=== PATIENT | male | born 1965 | race African-American/Black ===

== ENCOUNTER 2017-12-07 19:52 | Emergency (ER) | payer OTHER ==
[2017-12-07 19:58] VITALS: BP 141/86; PULSE 96; TEMP 98.8; BMI 42.2
[2017-12-07] MEDS ORDERED: KETOROLAC TROMETHAMINE 30 MG/1 ML VIAL IM ONE (20:37)
--- NOTE | 2017-12-07 20:37 | PDOC ---
History of Present Illness - General Chief Complaint: Pain, Acute Stated Complaint: KNEE PAIN Time Seen by Provider: 12/07/17 20:16 History Source: Patient Exam Limitations: No Limitations - History of Present Illness Initial Comments: 12/07/17 21:03 This is a 52-year-old male without significant past medical history of presents emergency Department with left knee pain which is worsened over the past 2 weeks. Patient states when he has prolonged periods of inactivity the pain gets worse but if she moves the pain gets relieved to the point where the pain is completely gone. He denies trauma, fevers, chills, swelling to the area. Past History - Past Medical History Allergies/Adverse Reactions: Allergies Allergy/AdvReac Type Severity Reaction Status Date / Time No Known Allergies Allergy Verified 07/17/16 06:47 Home Medications: Ambulatory Orders Amlodipine Besylate [Norvasc -] 10 mg PO DAILY 12/07/17 Atorvastatin Ca [Lipitor] 40 mg PO HS 12/07/17 Anemia: No Asthma: No Cancer: No Cardiac Disorders: No CVA: No COPD: No CHF: No Dementia: No Diabetes: Yes (pre-diabetic) GI Disorders: No Disorders: No HTN: Yes Hypercholesterolemia: Yes Liver Disease: No Seizures: No Thyroid Disease: No - Immunization History Immunization Up to Date: Yes - Suicide/Smoking/Psychosocial Hx Smoking History: Current some day smoker Cigars Per Day: 1 Information on smoking cessation initiated: No Hx Alcohol Use: No Drug/Substance Use Hx: No Substance Use Type: None Review of Systems - Review of Systems Able to Perform ROS?: Yes Is the patient limited Nauruan proficient: No Constitutional: No: Symptoms Reported HEENTM: No: Symptoms Reported Respiratory: No: Symptoms reported Cardiac (ROS): No: Symptoms Reported ABD/GI: No: Symptoms Reported : No: Symptoms Reported Musculoskeletal: Yes: See HPI Integumentary: No: Symptoms Reported Neurological: No: Symptoms reported *Physical Exam - Vital Signs Last Vital Signs Temp Pulse Resp BP Pulse Ox 98.8 F 96 H 20 141/86 95 12/07/17 19:56 12/07/17 19:56 12/07/17 19:56 12/07/17 19:56 12/07/17 19:56 - Physical Exam General Appearance: Yes: Appropriately Dressed. No: Apparent Distress Neck: positive: Trachea midline, Supple Respiratory/Chest: positive: Lungs Clear, Normal Breath Sounds. negative: Respiratory Distress, Accessory Muscle Use Cardiovascular: positive: Regular Rhythm, Regular Rate. negative: Murmur Gastrointestinal/Abdominal: positive: Normal Bowel Sounds, Soft. negative: Tender Musculoskeletal: positive: Normal Inspection. negative: CVA Tenderness, Decreased Range of Motion Extremity: positive: Normal Capillary Refill, Normal Inspection Integumentary: positive: Normal Color, Dry, Warm Neurologic: positive: Alert, Normal Response Medical Decision Making - Medical Decision Making 12/07/17 21:03 A/P: 52-year-old male without significant past medical history with atraumatic left knee pain for 2 weeks which worsens with inactivity and is improved with mobility No swelling noted to knee For range of motion noted when compared to right leg Negative Becca test Toradol, x-rays, reassess 12/07/17 22:04 Wet read of x-ray: No fracture dislocation is present. I will discharge the patient home. I discussed the physical exam findings, ancillary test results and final diagnoses with the patient. I answered all of the patient's questions. The patient was satisfied with the care received and felt comfortable with the discharge plan and treatment plan. The patient will call his doctor within 96 hours to arrange follow-up and will return to the Emergency Department with any new, persistent or worsening symptoms. *DC/Admit/Observation/Transfer Diagnosis at time of Disposition: Arthritis - Discharge Dispostion Disposition: HOME Condition at time of disposition: Fair Decision to Admit order: No - Referrals - Patient Instructions Printed Discharge Instructions: DI for Arthritis Additional Instructions: Take Tylenol or Motrin as needed for pain. Follow manufacturers instructions for appropriate dosage. Return to emergency department for discoloration of the foot, numbness or tingling to the foot, worsening pain, or any other concerns. Thank you very much for choosing us to provide your emergent healthcare needs. - Post Discharge Activity Forms/Work/School Notes: Back to Work
[2017-12-07] MEDS ORDERED: KETOROLAC TROMETHAMINE 30 MG/1 ML VIAL ONE (20:48)
== END 2017-12-07 22:13 | disposition home or self-care (01) ==
LOC: JERFT 19:52
PROC: 3E0233Z Introduction of Anti-inflammatory into Muscle, Percutaneous Approach (ICD-10-PCS; principal; 2017-12-07)
DX: M13.862 Other specified arthritis, left knee (principal); I10 Essential (primary) hypertension; E78.00 Pure hypercholesterolemia, unspecified; R73.03 Prediabetes
CPT/HCPCS: 73562-TC-LT-FY; 99281-25

== ENCOUNTER 2019-02-09 08:00 | Observation (INO) | payer OTHER ==
[2019-02-01 14:19] VITALS: BMI 44.9
[2019-02-22] MEDS ORDERED: MIDAZOLAM HCL 2 MG/2 ML SINGLE DOSE VIAL ONE (11:32)
[2019-02-22] MEDS ORDERED: BUPIVACAINE HCL/PF 0.5% (5 MG/ML) 30 ML VIAL IJ ONE (11:33)
[2019-02-22] MEDS ORDERED: PROPOFOL 20 ML ONE ×2 (12:08→12:18)
[2019-02-22] MEDS ORDERED: BUPIVACAINE HCL/PF 2.5 MG/ML - 30 ML VIAL IJ ONE (12:08)
[2019-02-22] MEDS ORDERED: SUCCINYLCHOLINE CHLORIDE 200 MG/10 ML SYRINGE ONE (12:08)
[2019-02-22] MEDS ORDERED: ONDANSETRON 4 MG/2 ML VIAL ONE (12:11)
[2019-02-22] MEDS ORDERED: LIDOCAINE HCL/PF 2% SDV 5ML VIAL ONE (12:11)
[2019-02-22] MEDS ORDERED: ceFAZolin SODIUM 1 GM VIAL ONE (12:11)
[2019-02-22] MEDS ORDERED: SODIUM CHLORIDE 0.9% P/F 10 ML VIAL IJ ONE (12:11)
[2019-02-22] MEDS ORDERED: DEXAMETHASONE SOD PHOSPHATE 4 MG/1 ML VIAL ONE (12:11)
[2019-02-22] MEDS ORDERED: SODIUM CHLORIDE 1,000 ML IV SCH (13:00)
[2019-02-22] MEDS ORDERED: ONDANSETRON 4 MG/2 ML VIAL IVPUSH PRN (13:10)
[2019-02-22] MEDS ORDERED: PROMETHAZINE HCL 25 MG/1 ML VIAL IVPUSH PRN (13:10)
--- NOTE | 2019-02-22 13:37 | HP ---
DATE OF ADMISSION: 02/22/2019 CHIEF COMPLAINT: Morbid obesity. HISTORY OF PRESENT ILLNESS: The patient is a 53-year-old gentleman with a history of morbid obesity for many years despite multiple attempts at dietary weight loss. He received nutritional, psychological, pulmonary, and medical evaluation and clearance for him to be admitted to the hospital for elevate sleeve gastrectomy surgery. PAST MEDICAL HISTORY: Significant for diabetes mellitus, also for hypertension, also for GE reflux disease, also for sleep apnea. PAST SURGICAL HISTORY: Significant for inguinal hernia. MEDICATIONS: The patient takes the following medications: Amlodipine besylate, atorvastatin, calcium, losartan, potassium, takes furosemide, potassium chloride, Januvia, and omeprazole. ALLERGIES: Patient has no known allergies. REVIEW OF SYSTEMS: Cardiovascular: Within normal limits. Gastrointestinal: Occasional heartburn complaint. Musculoskeletal: Within normal limits. Integumentary: Within normal limits. Neurologic: Within normal limits. PHYSICAL EXAMINATION: General: A 53-year-old gentleman awake and alert. Morbidly obese in no acute distress. HEENT: No masses palpated. Lungs: Clear breath sounds bilaterally. Heart: Regular sinus rhythm. Abdomen: Positive for significant obesity on palpation. It is soft and nontender on palpation. Extremities: Within normal limits. No signs of any swelling or cyanosis. IMPRESSION: Morbid obesity. PLAN: Surgery for laparoscopic sleeve gastrectomy, possible open sleep gastrectomy. KALEIGH ANTOINE M.D. JOSE [id number]
[2019-02-22] MEDS ORDERED: ACETAMINOPHEN 1000 MG/100 ML VIAL (NON FORMULARY) IVPB ONE (15:48)
--- NOTE | 2019-02-22 16:39 | PN ---
Progress Note (short form) - Note Progress Note: Pt with attempted Sleeve Gastrectomy. Pt unable to be intubated secondaryto difficult airway. [place] wt Glidescope led to traumatic airway with swelling and minor bleeding Pt admitted for observation related to swelling in airway If pt breathing well tomorrow, anticipate discharge tomorrow and re-schedule surgery later this week.
[2019-02-22] MEDS ORDERED: ACETAMINOPHEN 325 MG TABLET (FP) PO PRN (17:08)
--- NOTE | 2019-02-22 18:14 | PN ---
Progress Note (short form) - Note Progress Note: PULMONARY CONSULTATION DICTATED 02/22/19 IMP UPPER AIRWAY TRAUMA SECONDARY TO ATTEMPTED INTUBATION MORBID OBESITY FOR LAP SLEEVE SAULO ON CPAP 13cm H2O HTN DM PLAN SHORT COURSE OF MEDROL O2 BIPAP AT NIGHT INHALED BRONCHODILATORS DR HUGHES Problem List - Problems (1) Morbid obesity with BMI of 45.0-49.9, adult Code(s): E66.01 - MORBID (SEVERE) OBESITY DUE TO EXCESS CALORIES; Z68.42 - BODY MASS INDEX (BMI) 45.0-49.9, ADULT (2) Sleep apnea Code(s): G47.30 - SLEEP APNEA, UNSPECIFIED (3) HTN (hypertension) Code(s): I10 - ESSENTIAL (PRIMARY) HYPERTENSION
[2019-02-22] MEDS: methylPREDNISolone NA SUCC 40 MG/1 ML VIAL IVPUSH SCH (18:39)
--- NOTE | 2019-02-22 19:17 | CONS ---
DATE OF CONSULTATION: 02/22/2019 PULMONARY CONSULTATION REFERRING PHYSICIAN: Bakari Wynn M.D. HISTORY OF PRESENT ILLNESS: The patient is a 53-year-old black male with a past medical history of morbid obesity, severe obstructive sleep apnea on CPAP at 13, diabetes, hypertension, longstanding history of tobacco use, quit 15 years ago, who was admitted to [facility] earlier today for laparoscopic gastric sleeve. The patient was unable to be intubated secondary to difficult airway. Attempts with GlideScope led to traumatic airway with swelling and minor bleeding, in which case the case was canceled and patient was transferred to medical floor for further management. Patient at this current time denies any shortness of breath or chest pain, complaining of sore throat. PAST MEDICAL HISTORY: Again includes morbid obesity, severe obstructive sleep apnea on CPAP 13, hypertension, diabetes. SOCIAL HISTORY: Longstanding history of tobacco use, quit 15 years ago. No occupational exposures. REVIEW OF SYSTEMS: No orthopnea. No PND. Positive sore throat. No chest pain. No palpitations. No cough. No abdominal pain. No lower extremity edema. CURRENT MEDICATIONS: Include Zofran, Tylenol, Hyzaar, Norvasc, normal saline, Pepcid, NovoLog, Lasix. PHYSICAL EXAMINATION: GENERAL: The patient is a morbidly obese black male, awake, alert, in no acute distress. He is afebrile. VITAL SIGNS: Blood pressure 138/81, respiratory rate 19, O2 saturation 95% on 3 L, temperature is 97.9. HEENT: Normocephalic, atraumatic. NECK: Supple without any adenopathy, there is no stridor. HEART: Regular S1, S2. CHEST: Clear. ABDOMEN: Soft, bowel sounds positive. EXTREMITIES: No cyanosis, edema. LABORATORY: WBC 6, hemoglobin 14.1, hematocrit 44.2 with platelet count of 246, 000. INR is 1.02. Chemistries: BUN 15, creatinine 1.2. Chest x-ray: No infiltrates, no effusion. IMPRESSION: 1. Upper airway trauma secondary to attempted intubation. 2. Morbid obesity for laparoscopic gastric sleeve. 3. Obstructive sleep apnea on CPAP at 13 cmH2O pressure 4. Hypertension. 5. Diabetes. PLAN: Short course of Solu-Medrol. Supplemental O2. BiPAP at night. Inhaled bronchodilators as needed. VALENCIA HUGHES M.D. [id number] MTDD
[2019-02-22] MEDS: FAMOTIDINE 20 MG/50 ML IVPB 20 MG/50 ML MG IVPB SCH (21:24)
[2019-02-22] MEDS ORDERED: INSULIN (NOVOLOG) ASPART 100 UNITS/ML 10ML VIAL ONE (21:26)
[2019-02-22] MEDS: INSULIN SLIDING SCALE (NOVOLOG) 1 VIAL SQ SCH (21:27)
[2019-02-22] MEDS ORDERED: ATORVASTATIN CA 20 MG TABLET (FP) PO SCH (22:00)
[2019-02-23] MEDS: methylPREDNISolone NA SUCC 40 MG/1 ML VIAL IVPUSH SCH ×2 (04:02→09:40)
[2019-02-23] MEDS: INSULIN SLIDING SCALE (NOVOLOG) 1 VIAL SQ SCH (06:49)
[2019-02-23] MEDS ORDERED: sitaGLIPtin PHOSPHATE 50 MG TABLET PO SCH (07:00)
[2019-02-23 07:10] VITALS: BP 141/75; PULSE 86; TEMP 98.1
--- NOTE | 2019-02-23 08:11 | CONSULT ---
Consult - History of Present Illness History of Present Illness: 53 Y/O MALE WITH UPPER AIRWAY TRAUMA SECONDARY TO ATTEMPTED INTUBATION WAS ADMITTED FOR OBSERVATION GIVEN STEROIDS. FEELS BETTER THIS AM TOLERATING SOLIDS - Past Medical History Cardio/Vascular: Yes: HTN, Hyperlipdemia Pulmonary: Yes: COPD, Sleep Apnea Endocrine: Yes: Other (OBESITY) - Alcohol/Substance Use Hx Alcohol Use: No - Smoking History Smoking history: Former smoker Have you smoked in the past 12 months: Yes Home Medications - Allergies Allergies/Adverse Reactions: Allergies Allergy/AdvReac Type Severity Reaction Status Date / Time No Known Allergies Allergy Verified 02/22/19 11:07 - Home Medications Home Medications: Ambulatory Orders Atorvastatin Ca [Lipitor] 40 mg PO HS 12/07/17 Losartan/Hydrochlorothiazide [Losartan-Hctz 50-12.5 mg Tab] 1 each PO DAILY Sitagliptin Phosphate [Januvia] 100 mg PO DAILY 01/15/19 Amlodipine Besylate 10 mg PO DAILY 02/01/19 Furosemide [Lasix] 40 mg PO DAILY 02/01/19 Omeprazole 20 mg PO DAILY 02/01/19 Potassium Chloride [K-Dur -] 20 meq PO DAILY 02/01/19 Review of Systems - Review of Systems HENT: reports: Throat Pain (RESOLVED) Cardiovascular: reports: No Symptoms Respiratory: reports: No Symptoms Gastrointestinal: reports: No Symptoms Physical Exam Vital Signs: Vital Signs Temperature 98.1 F 02/23/19 05:00 Pulse Rate 86 02/23/19 05:00 Respiratory Rate 20 02/23/19 05:00 Blood Pressure 141/75 02/23/19 05:00 O2 Sat by Pulse Oximetry (%) 95 02/23/19 07:09 Neck: Yes: Supple Cardiovascular: Yes: Regular Rate and Rhythm Respiratory: Yes: Regular, CTA Bilaterally Gastrointestinal: Yes: Normal Bowel Sounds, Soft Edema: No Problem List - Problems (1) Throat disorder Assessment/Plan: RESOLVED ON STEROIDS Code(s): J39.2 - OTHER DISEASES OF PHARYNX (2) HTN (hypertension) Assessment/Plan: SAME MEDS Vital Signs Period Temp Pulse Resp BP Sys/Cai Pulse Ox Last 24 Hr 97.6 F-98.7 F 80-97 18-20 109-152/71-88 93-97 Code(s): I10 - ESSENTIAL (PRIMARY) HYPERTENSION (3) Morbid obesity with BMI of 45.0-49.9, adult Assessment/Plan: FOR SLEEVE Code(s): E66.01 - MORBID (SEVERE) OBESITY DUE TO EXCESS CALORIES; Z68.42 - BODY MASS INDEX (BMI) 45.0-49.9, ADULT (4) Sleep apnea Assessment/Plan: PER PULM Code(s): G47.30 - SLEEP APNEA, UNSPECIFIED
[2019-02-23 08:47] LABS: HEMATOCRIT 45.7 % (35.4-49); HEMOGLOBIN 14.6 GM/dl (11.7-16.9); MCH 24.4 pg (25.7-33.7); MEAN CELL VOLUME 76.4 fl (80-96); MEAN PLT VOLUME 9.9 fl (7.5-11.1); PLATELET COUNT 293 K/MM3 (134-434); RBC 5.98 M/mm3 (4.00-5.60); RDW 14.5 % (11.9-15.9); WHITE BLOOD COUNT 16.8 K/mm3 (4.0-10.8)
[2019-02-23 09:06] LABS: ALBUMIN 3.4 g/dl (3.4-5.0); BILIRUBIN,TOTAL 0.9 mg/dl (0.2-1); CREATININE 1.1 mg/dl (0.55-1.3); POTASSIUM 3.9 mmol/L (3.5-5.1); TOT PROT 7.7 g/dl (6.4-8.2)
[2019-02-23] MEDS: FAMOTIDINE 20 MG/50 ML IVPB 20 MG/50 ML MG IVPB SCH (09:40)
[2019-02-23] MEDS ORDERED: amLODIPine BESYLATE 10 MG TABLET (FP) PO SCH (10:00)
[2019-02-23] MEDS ORDERED: FUROSEMIDE 40 MG TABLET (FP) PO SCH (10:00)
[2019-02-23] MEDS ORDERED: LOSARTAN 50MG/HCTZ 12.5MG 1 TAB (FP) PO SCH (10:00)
--- NOTE | 2019-02-23 11:00 | PN ---
Progress Note, Physician History of Present Illness: pulmonary alert,feeling better,-sob,slept well,+ c/o sore throat - Current Medication List Current Medications: Active Medications Acetaminophen (Tylenol -) 650 mg PO Q6H PRN PRN Reason: PAIN OR FEVER Amlodipine Besylate (Norvasc -) 10 mg PO DAILY [facility] Last Admin: 02/23/19 09:39 Dose: 10 mg Atorvastatin Calcium (Lipitor -) 20 mg PO HS [facility] Last Admin: 02/22/19 21:24 Dose: 20 mg Furosemide (Lasix -) 40 mg PO DAILY [facility] Last Admin: 02/23/19 09:39 Dose: 40 mg HCTZ/Losartan Potassium (Hyzaar -) 1 tab PO DAILY [facility] Last Admin: 02/23/19 09:39 Dose: 1 tab Famotidine/Sodium Chloride (Pepcid 20 Mg Premixed Ivpb -) 20 mg in 50 mls @ 100 mls/hr IVPB BID [facility] Last Admin: 02/23/19 09:40 Dose: 100 mls/hr Sodium Chloride (Normal Saline -) 1,000 mls @ 50 mls/hr IV ASDIR [facility] Last Admin: 02/22/19 16:54 Dose: 50 mls/hr Insulin Aspart (Novolog Vial Sliding Scale -) 1 vial SQ ACHS [facility]; Protocol Last Admin: 02/23/19 06:49 Dose: Not Given Methylprednisolone Sodium Succinate (Solu-Medrol -) 40 mg IVPUSH Q8H-IV [facility] Last Admin: 02/23/19 09:40 Dose: 40 mg Ondansetron HCl (Zofran Injection) 4 mg IVPUSH Q6H PRN PRN Reason: NAUSEA AND/OR VOMITING Sitagliptin Phosphate (Januvia -) 100 mg PO DAILY@0700 [facility] Last Admin: 02/23/19 06:49 Dose: 100 mg - Objective Vital Signs: Vital Signs Temperature 98.1 F 02/23/19 05:00 Pulse Rate 86 02/23/19 05:00 Respiratory Rate 18 02/23/19 08:16 Blood Pressure 141/75 02/23/19 05:00 O2 Sat by Pulse Oximetry (%) 97 02/23/19 08:16 Constitutional: Yes: Well Nourished, Calm, Obese Eyes: Yes: WNL HENT: Yes: WNL Neck: Yes: WNL, Other (-stridor) Cardiovascular: Yes: Regular Rate and Rhythm, S1, S2 Respiratory: Yes: CTA Bilaterally Gastrointestinal: Yes: Normal Bowel Sounds, Soft Extremities: Yes: WNL Edema: No Labs: CBC, BMP 02/23/19 07:13 02/23/19 07:13 Problem List - Problems (1) Morbid obesity with BMI of 45.0-49.9, adult Code(s): E66.01 - MORBID (SEVERE) OBESITY DUE TO EXCESS CALORIES; Z68.42 - BODY MASS INDEX (BMI) 45.0-49.9, ADULT (2) Sleep apnea Code(s): G47.30 - SLEEP APNEA, UNSPECIFIED (3) HTN (hypertension) Code(s): I10 - ESSENTIAL (PRIMARY) HYPERTENSION Assessment/Plan IMP UPPER AIRWAY TRAUMA SECONDARY TO ATTEMPTED INTUBATION MORBID OBESITY FOR LAP SLEEVE SAULO ON CPAP 13cm H2O HTN DM PLAN PT CLINICALLY STABLE NO OBJECTION TO DISCHARGE O2 CPAP AT NIGHT INHALED BRONCHODILATORS DR HUGHES Problem List - Problems (1) Morbid obesity with BMI of 45.0-49.9, adult Code(s): E66.01 - MORBID (SEVERE) OBESITY DUE TO EXCESS CALORIES; Z68.42 - BODY MASS INDEX (BMI) 45.0-49.9, ADULT (2) Sleep apnea Code(s): G47.30 - SLEEP APNEA, UNSPECIFIED (3) HTN (hypertension) Code(s): I10 - ESSENTIAL (PRIMARY) HYPERTENSION
--- NOTE | 2019-02-23 11:10 | PN ---
Progress Note (short form) - Note Progress Note: Afebrile; VSS Pulmonary, Medicine notes appreciated Pt feels well sore throat feels better No SOB Tolerating PO liquids well Glu-137 P- D/C home To be re-admitted 02/25/2019 for sleeve gastrectomy Cont CPAP at home
== END 2019-02-23 11:30 | disposition home or self-care (01) ==
LOC: FM/S 02-22 10:15 → UNDOADMOB 02-22 10:15 → INTOOBSV 02-22 10:15 → FM/S 02-22 14:57
PROVIDERS: ADMIT Surgery; ATTEND Surgery
PROC: 0DB64ZZ Excision of Stomach, Percutaneous Endoscopic Approach (ICD-10-PCS; principal; 2019-02-23)
PROC: 3E0333Z Introduction of Anti-inflammatory into Peripheral Vein, Percutaneous Approach (ICD-10-PCS; 2019-02-23)
PROC: 3E033NZ Introduction of Analgesics, Hypnotics, Sedatives into Peripheral Vein, Percutaneous Approach (ICD-10-PCS; 2019-02-23)
PROC: 3E0337Z Introduction of Electrolytic and Water Balance Substance into Peripheral Vein, Percutaneous Approach (ICD-10-PCS; 2019-02-23)
DX: E66.01 Morbid (severe) obesity due to excess calories (principal); Z53.09 Procedure and treatment not carried out because of other contraindication; J39.2 Other diseases of pharynx; R07.0 Pain in throat; G47.30 Sleep apnea, unspecified; I10 Essential (primary) hypertension; E11.9 Type 2 diabetes mellitus without complications; Z99.89 Dependence on other enabling machines and devices; Z87.891 Personal history of nicotine dependence; Z79.4 Long term (current) use of insulin; J95.88 Other intraoperative complications of respiratory system, not elsewhere classified; Z68.41 Body mass index [BMI] 40.0-44.9, adult; Y83.8 Other surgical procedures as the cause of abnormal reaction of the patient, or of later complication, without mention of misadventure at the time of the procedure; Y82.8 Other medical devices associated with adverse incidents; Y92.234 Operating room of hospital as the place of occurrence of the external cause
CPT/HCPCS: 36415; 80053; 82962; 83036; 85027; 94660; 94760; 96365; 96375; G0378; J0131; J7030

== ENCOUNTER 2019-02-25 11:18 | Inpatient (IN) | payer OTHER ==
[2019-02-24 15:22] VITALS: BMI 44.9
[2019-02-25] MEDS ORDERED: methylPREDNISolone NA SUCC 40 MG/1 ML VIAL ONE (12:16)
[2019-02-25] MEDS ORDERED: ALBUTEROL SO4 0.083% IH SOL 2.5 MG/3 ML VIAL.NEB. NEB ONE (12:16)
[2019-02-25] MEDS ORDERED: MIDAZOLAM HCL 2 MG/2 ML SINGLE DOSE VIAL ONE (12:29)
[2019-02-25] MEDS ORDERED: PROPOFOL 20 ML ONE (13:21)
[2019-02-25] MEDS ORDERED: ROCURONIUM BROMIDE 50 MG/5 ML SYRINGE ONE (13:21)
[2019-02-25] MEDS ORDERED: DEXMEDETOMIDINE HCL 200 MCG/2 ML IVPB ONE (13:33)
[2019-02-25] MEDS ORDERED: BUPIVACAINE HCL/PF 0.5% (5 MG/ML) 30 ML VIAL IJ ONE (13:41)
[2019-02-25] MEDS ORDERED: DEXAMETHASONE SOD PHOSPHATE/PF 10 MG/ML SDV ONE (13:41)
[2019-02-25] MEDS ORDERED: BUPIVACAINE HCL/PF 2.5 MG/ML - 30 ML VIAL IJ ONE (14:41)
[2019-02-25] MEDS ORDERED: NEOSTIGMINE METHYLSULFATE 0.5 MG/ML - 10 ML MDV ONE (14:44)
[2019-02-25] MEDS: ACETAMINOPHEN 1000 MG/100 ML VIAL (NON FORMULARY) IVPB SCH ×3 (15:20→21:11)
[2019-02-25] MEDS ORDERED: ONDANSETRON 4 MG/2 ML VIAL IVPUSH PRN (15:21)
[2019-02-25] MEDS ORDERED: ACETAMINOPHEN INJECTION 100 ML IVPB ONE (15:24)
[2019-02-25] MEDS ORDERED: KETOROLAC TROMETHAMINE 30 MG/1 ML VIAL ONE (15:24)
--- NOTE | 2019-02-25 15:28 | OP ---
Operative Note - Note: Operative Date: 02/25/19 Pre-Operative Diagnosis: Morbid Obesity. Diabetes Mellitus. Obstructive Sleep Apnea Operation: Laparoscopic Vertical Sleeve Gastrectomy. Wedge Biopsy of left lobe of liver. Diagnostic Laparoscopy Findings: Greater curve sleeve gastrectomy performed with #[address] Wedge biopsy performed on left lobe of liver Post-Operative Diagnosis: Same as Pre-op (Hepatomegaly) Surgeon: Bakari Wynn [facility] Sales Consultant: Mariusz Chavarria Anesthesia: General Specimens Removed: Greater curve of stomach. Wedge biopsy of left lobe of liver Estimated Blood Loss (mls): 30 Operative Report Dictated: Yes
[2019-02-25] MEDS ORDERED: LACTATED RINGERS SOLUTION 1,000 ML IV SCH (15:30)
[2019-02-25] MEDS ORDERED: SODIUM CHLORIDE 1,000 ML IV SCH (15:30)
[2019-02-25] MEDS: KETOROLAC TROMETHAMINE 15 MG/ML VIAL IVPUSH SCH ×3 (15:35→21:09)
[2019-02-25 15:46] LABS: HEMATOCRIT 46.7 % (35.4-49); HEMOGLOBIN 14.8 GM/dl (11.7-16.9); MCH 24.3 pg (25.7-33.7); MCHC 31.7 g/dl (32.0-35.9); MEAN CELL VOLUME 76.6 fl (80-96); MEAN PLT VOLUME 9.9 fl (7.5-11.1); PLATELET COUNT 298 K/MM3 (134-434); RDW 14.4 % (11.9-15.9); WHITE BLOOD COUNT 10.5 K/mm3 (4.0-10.8)
[2019-02-25] MEDS ORDERED: LABETALOL HCL 5 MG/1 ML (100MG/20 ML VIAL) ONE (16:09)
[2019-02-25] MEDS: LABETALOL HCL 5 MG/1 ML (100MG/20 ML VIAL) IVPUSH ONE ×2 (16:10→18:00)
--- NOTE | 2019-02-25 16:21 | OP ---
DATE OF OPERATION: 02/25/2019 PREOPERATIVE DIAGNOSES: 1. Morbid obesity. 2. Diabetes mellitus. 3. Obstructive sleep apnea. POSTOPERATIVE DIAGNOSES: 1. Morbid obesity. 2. Diabetes mellitus. 3. Obstructive sleep apnea. 4. Hepatomegaly. PROCEDURE PERFORMED: 1. Laparoscopic vertical sleeve gastrectomy. 2. Wedge biopsy of left lobe of the liver. 3. Diagnostic laparoscopy. OPERATING SURGEON: Bakari Wynn MD HIGH SCHOOL ACADEMIC COACH: Mariusz Chavarria MD ANESTHESIA: General. EXPECTED BLOOD LOSS: 30 mL. DISPOSITION: Patient transferred to recovery room in stable condition. DESCRIPTION OF OPERATIVE PROCEDURE: The patient was brought into the operating room, placed on the OR table in supine position. All precautions were taken initially including padding for the back and the feet, and Venodyne boots were placed on both lower extremities. At that point, the abdomen was prepped and draped in usual manner. A Veress needle was placed in the left upper quadrant, and pneumoperitoneum was established. Under direct vision, a number 5 bladeless trocar was placed in the left upper quadrant under direct vision with an optic view. Once this was placed in the abdominal cavity, a number 15 bladeless trocar was then placed in the midline in the supraumbilical division, followed by a number 5 bladeless trocar in the right upper quadrant and a number 5 bladeless trocar below the left costal margin. A Chelsie liver retractor was then placed in the epigastrium to retract the left lobe of liver. The left lobe was noted to be extremely enlarged, and it was decided that a biopsy would be performed at this point. The LigaSure device was used to dissect a triangular-shaped wedge biopsy off the inferior edge of the left lobe of liver. Once this was done, it was sent off the field as specimen to pathology. There was only some minor bleeding or oozing noted from the parenchyma, and this was easily controlled with the hook portion of the LigaSure device. At this point, the patient was placed in a 20-degree reverse Trendelenburg position by Anesthesia. The pylorus was noted on the distal stomach, and from here, 6 cm were measured proximally. At that point, the operating surgeon lifted the stomach toward the anterior abdominal wall as the assistant office manager surgeon retracted the gastrocolic ligament inferiorly. The LigaSure was now used to dissect the gastrocolic ligament off the greater curve of stomach. This continued in a superior and vertical direction, dissecting the short gastric vessels as the assistant office manager surgeon continued to retract the short gastric vessels laterally away from the operating surgeon. This continued until the final short gastric vessel between the superior pole spleen and the proximal fundus was divided. At this juncture, Anesthesia suction, reinserted the number 36 bougie and advanced it down toward the antrum of the stomach. With the bougie held along the lesser curve, a series of dana was performed, the first 2 being 6 cm of black load dana 6 cm in length, and they were along the bougie. This was followed by a series of purple dana, also 6 cm in length and also along the bougie until the final staple was fired in the left upper quadrant and the greater curve was now completely detached from the lesser curve. It should be noted that prior to firing each staple, both the anterior and posterior vargas were checked that they were equal, and in the area of the esophagogastric junction, approximately 1 to 1.5 cm of serosa remained on the anterior and posterior surfaces. At this juncture, saline was placed around the staple line, and Anesthesia inserted air into the bougie which inflated up to 35 mm of pressure. No leaks were noted, and air was going all the way to the pylorus; so no obstruction was noted. At this juncture, the stomach was suctioned clear, and the greater curve was removed through the number 15 trocar site in the midline. Under direct vision, the number 15 trocar site was closed with Endoclose device to prevent internal hernia and to prevent bleeding. Under direct vision, all trocars were removed and pneumoperitoneum released. All trocar sites received 0.25% Marcaine. The number 15 midline site was closed with 3-0 Vicryl in the subcutaneous tissue. Then, all trocar sites were closed with 4-0 Biosyn in subcuticular fashion. Dressings were applied. Patient awoke from anesthesia and transferred out of the operating room to the recovery room in stable condition. Addison [id number]
[2019-02-25 16:53] LABS: ALBUMIN 3.7 g/dl (3.4-5.0); BILIRUBIN,TOTAL 0.7 mg/dl (0.2-1); CALCIUM 8.9 mg/dl (8.5-10); CREATININE 1.4 mg/dl (0.55-1.3); POTASSIUM 3.6 mmol/L (3.5-5.1); TOT PROT 7.7 g/dl (6.4-8.2)
[2019-02-25] MEDS: ENOXAPARIN NA (PORCINE) 40 MG/0.4 ML DISP.SYRIN SQ SCH (21:19)
[2019-02-25] MEDS: FAMOTIDINE 20 MG/50 ML IVPB 20 MG/50 ML MG IVPB SCH (21:20)
[2019-02-25] MEDS ORDERED: amLODIPine BESYLATE 10 MG TABLET (FP) PO ONE (22:00)
[2019-02-25] MEDS ORDERED: FUROSEMIDE 40 MG TABLET (FP) PO ONE (22:00)
[2019-02-25] MEDS ORDERED: POTASSIUM CHLORIDE TABS 10 MEQ TABLET.ER (FP) PO ONE (22:00)
[2019-02-26] MEDS: KETOROLAC TROMETHAMINE 15 MG/ML VIAL IVPUSH SCH ×2 (03:16→10:00)
[2019-02-26] MEDS: ACETAMINOPHEN 1000 MG/100 ML VIAL (NON FORMULARY) IVPB SCH ×2 (03:17→09:57)
[2019-02-26] MEDS ORDERED: INSULIN SLIDING SCALE (NOVOLOG) 1 VIAL SQ SCH (07:00)
[2019-02-26 07:39] LABS: HEMATOCRIT 32.8 % (35.4-49); HEMOGLOBIN 10.6 GM/dl (11.7-16.9); MCH 24.6 pg (25.7-33.7); MCHC 32.2 g/dl (32.0-35.9); MEAN CELL VOLUME 76.5 fl (80-96); MEAN PLT VOLUME 9.2 fl (7.5-11.1); PLATELET COUNT 257 K/MM3 (134-434); RBC 4.29 M/mm3 (4.00-5.60); RDW 14.4 % (11.9-15.9); WHITE BLOOD COUNT 19.2 K/mm3 (4.0-10.8)
[2019-02-26 07:53] LABS: ALBUMIN 2.9 g/dl (3.4-5.0); BILIRUBIN,TOTAL 0.8 mg/dl (0.2-1); CREATININE 2.7 mg/dl (0.55-1.3); POTASSIUM 4.6 mmol/L (3.5-5.1); TOT PROT 5.9 g/dl (6.4-8.2)
[2019-02-26] MEDS: FAMOTIDINE 20 MG/50 ML IVPB 20 MG/50 ML MG IVPB SCH ×2 (09:54→23:00)
[2019-02-26] MEDS: ENOXAPARIN NA (PORCINE) 40 MG/0.4 ML DISP.SYRIN SQ SCH (09:57)
--- NOTE | 2019-02-26 11:14 | HP ---
Admitting History and Physical - Admission Chief Complaint: came in for gastric sleeve surgery History of Present Illness: 53 yr old male patient has history of HTN,hyperlipidemia, pre diabetes and sleep apnea on cpap at home came in for Laparoscopic Vertical Sleeve Gastrectomy. History Source: Family Member - Past Medical History Cardiovascular: Yes: HTN, Hyperlipdemia Pulmonary: Yes: COPD, Sleep Apnea Endocrine: Yes: Other (OBESITY) - Smoking History Smoking history: Former smoker Have you smoked in the past 12 months: Yes - Alcohol/Substance Use Hx Alcohol Use: No Home Medications - Allergies Allergies/Adverse Reactions: Allergies Allergy/AdvReac Type Severity Reaction Status Date / Time No Known Allergies Allergy Verified 02/22/19 11:07 - Home Medications Home Medications: Ambulatory Orders Atorvastatin Ca [Lipitor] 40 mg PO HS 12/07/17 Losartan/Hydrochlorothiazide [Losartan-Hctz 50-12.5 mg Tab] 1 each PO DAILY Sitagliptin Phosphate [Januvia] 100 mg PO DAILY 01/15/19 Amlodipine Besylate 10 mg PO DAILY 02/01/19 Furosemide [Lasix] 40 mg PO DAILY 02/01/19 Omeprazole 20 mg PO DAILY 02/01/19 Potassium Chloride [K-Dur -] 20 meq PO DAILY 02/01/19 Review of Systems - Review of Systems Respiratory: reports: SOB Physical Examination Vital Signs: Vital Signs Temperature 98.7 F 02/26/19 06:00 Pulse Rate 104 H 02/26/19 09:46 Respiratory Rate 17 02/26/19 09:46 Blood Pressure 114/57 L 02/26/19 09:46 O2 Sat by Pulse Oximetry (%) 97 02/26/19 09:46 Constitutional: Yes: Calm Cardiovascular: Yes: Regular Rate and Rhythm, S1, S2 Respiratory: Yes: CTA Bilaterally, On Nasal O2 Gastrointestinal: Yes: Soft, Abdomen, Obese, Other (4 surgical dressing on of them is blood stained) Edema: Yes Neurological: Yes: Alert, Oriented Labs: CBC, BMP 02/26/19 07:15 02/26/19 07:15 Imaging - Results X-ray: Pending Problem List - Problems (1) HTN (hypertension) Assessment/Plan: given low BP will hold off on all anti hypertensive medications continue IVF Code(s): I10 - ESSENTIAL (PRIMARY) HYPERTENSION (2) Morbid obesity with BMI of 45.0-49.9, adult Assessment/Plan: s/p Laparoscopic Vertical Sleeve Gastrectomy. Wedge Biopsy of left lobe of liver. surgical follow up gastrograffin study ordered repeat cbc and cmp ivf check hgba1c insulin sliding scale Code(s): E66.01 - MORBID (SEVERE) OBESITY DUE TO EXCESS CALORIES; Z68.42 - BODY MASS INDEX (BMI) 45.0-49.9, ADULT (3) LUCAS (acute kidney injury) Assessment/Plan: renal sono renal consult ivf hold all htn medications Code(s): N17.9 - ACUTE KIDNEY FAILURE, UNSPECIFIED
[2019-02-26] MEDS ORDERED: SODIUM CHLORIDE 1,000 ML IV STA (12:28)
[2019-02-26] MEDS: SODIUM CHLORIDE 1,000 ML IV SCH ×2 (12:30→16:10)
[2019-02-26] MEDS ORDERED: SODIUM CHLORIDE 1,000 ML IV SCH (12:30)
[2019-02-26 12:40] LABS: BASO % 0.2 % (0-2.0); HEMATOCRIT 31.2 % (35.4-49); HEMOGLOBIN 9.9 GM/dl (11.7-16.9); MCH 24.5 pg (25.7-33.7); MCHC 31.8 g/dl (32.0-35.9); MEAN CELL VOLUME 77.3 fl (80-96); MEAN PLT VOLUME 8.2 fl (7.5-11.1); MONO % 11.7 % (3.8-10.2); NEUT % 80.1 % (42.8-82.8); PLATELET COUNT 244 K/MM3 (134-434); RBC 4.04 M/mm3 (4.00-5.60); RDW 14.2 % (11.9-15.9); WHITE BLOOD COUNT 18.8 K/mm3 (4.0-10.8)
[2019-02-26 13:07] LABS: INR 1.25 (0.82-1.09); PROTHROMBIN TIME (PATIENT) 13.9 SEC (10.2-13.0)
[2019-02-26 13:11] LABS: ALBUMIN 2.8 g/dl (3.4-5.0); BILIRUBIN,TOTAL 0.7 mg/dl (0.2-1); CALCIUM 7.6 mg/dl (8.5-10); POTASSIUM 4.7 mmol/L (3.5-5.1); TOT PROT 5.7 g/dl (6.4-8.2)
--- NOTE | 2019-02-26 13:54 | CONSULT ---
Consult Consult Specialty:: endocrine Referred by:: dr.saba vaughn Reason for Consultation:: diabetes mellitus uncontrolled - History of Present Illness Chief Complaint: nausea and abdominal pain History of Present Illness: 53 y male morbid obesity,htn,diabetes mellitus type 2,SAULO sleep apnea with comorbid risk factors,admitted from sleeve gastrectomy has gi bleed and high sugars - Past Medical History Cardio/Vascular: Yes: HTN, Hyperlipdemia Pulmonary: Yes: COPD, Sleep Apnea Endocrine: Yes: Other (OBESITY) - Alcohol/Substance Use Hx Alcohol Use: No - Smoking History Smoking history: Former smoker Have you smoked in the past 12 months: Yes Home Medications - Allergies Allergies/Adverse Reactions: Allergies Allergy/AdvReac Type Severity Reaction Status Date / Time No Known Allergies Allergy Verified 02/22/19 11:07 - Home Medications Home Medications: Ambulatory Orders Atorvastatin Ca [Lipitor] 40 mg PO HS 12/07/17 Losartan/Hydrochlorothiazide [Losartan-Hctz 50-12.5 mg Tab] 1 each PO DAILY Sitagliptin Phosphate [Januvia] 100 mg PO DAILY 01/15/19 Amlodipine Besylate 10 mg PO DAILY 02/01/19 Furosemide [Lasix] 40 mg PO DAILY 02/01/19 Omeprazole 20 mg PO DAILY 02/01/19 Potassium Chloride [K-Dur -] 20 meq PO DAILY 02/01/19 Review of Systems - Review of Systems Constitutional: reports: Lethargy Eyes: reports: No Symptoms HENT: reports: No Symptoms Neck: reports: No Symptoms Cardiovascular: reports: Shortness of Breath Respiratory: reports: Exercise Intolerance, Orthopnea, SOB on Exertion Gastrointestinal: reports: Bloating, Nausea Genitourinary: reports: No Symptoms Breasts: reports: No Symptoms Reported Musculoskeletal: reports: Muscle Cramps, Muscle Weakness Integumentary: reports: No Symptoms Neurological: reports: No Symptoms Endocrine: reports: Unexplained Weight Gain Physical Exam Vital Signs: Vital Signs Temperature 98.6 F 02/26/19 12:45 Pulse Rate 88 02/26/19 12:55 Respiratory Rate 02/26/19 12:45 Blood Pressure 135/72 02/26/19 12:55 O2 Sat by Pulse Oximetry (%) 96 02/26/19 12:55 Constitutional: Yes: Anxious Eyes: Yes: EOM Intact HENT: Yes: Normocephalic Neck: Yes: Trachea Midline Cardiovascular: Yes: Tachycardia Respiratory: Yes: CTA Bilaterally Gastrointestinal: Yes: Hypoactive Bowel Sounds, Rectal Bleeding, Tenderness, Epigastrium ...Rectal Exam: Yes: Deferred Renal/: Yes: WNL Breast(s): Yes: Gynecomastia Musculoskeletal: Yes: Muscle Weakness Extremities: Yes: Cool Edema: LLE: 1+, RLE: 1+ Neurological: Yes: Numbness, Weakness Labs: CBC, BMP 02/26/19 12:41 02/26/19 12:41 Problem List - Problems (1) Diabetes mellitus Code(s): E11.9 - TYPE 2 DIABETES MELLITUS WITHOUT COMPLICATIONS Qualifiers: Diabetes mellitus type: due to underlying condition Diabetes mellitus complication status: with diabetic arthropathy (2) LUCAS (acute kidney injury) Code(s): N17.9 - ACUTE KIDNEY FAILURE, UNSPECIFIED (3) HTN (hypertension) Code(s): I10 - ESSENTIAL (PRIMARY) HYPERTENSION (4) Morbid obesity with BMI of 45.0-49.9, adult Code(s): E66.01 - MORBID (SEVERE) OBESITY DUE TO EXCESS CALORIES; Z68.42 - BODY MASS INDEX (BMI) 45.0-49.9, ADULT (5) Muscle strain Code(s): T14.8 - OTHER INJURY OF UNSPECIFIED BODY REGION * DO NOT USE * (6) Sleep apnea Code(s): G47.30 - SLEEP APNEA, UNSPECIFIED (7) Strain of knee Code(s): S86.919A - STRAIN OF UNSP MUSC/TEND AT LOWER LEG LEVEL, UNSP LEG, INIT Qualifiers: Encounter type: initial encounter Laterality: right Qualified Code(s): S86.911A - Strain of unspecified muscle(s) and tendon(s) at lower leg level, right leg, initial encounter Assessment/Plan Current Active Problems diabetes mellitus type 2 morbid obesity severe saulo gi bleeding htn LUCAS (acute kidney injury) (Acute) Current Medications Generic Name Dose Route Start Last Admin Trade Name Freq PRN Reason Stop Dose Admin Enoxaparin Sodium 40 mg 02/25/19 22:00 02/26/19 09:57 Lovenox - SQ 40 mg BID DURAN Administration Famotidine/Sodium Chloride 20 mg in 50 mls @ 100 mls/hr 02/25/19 22:00 09:54 Pepcid 20 Mg Premixed Ivpb - IVPB 100 mls/hr BID DURAN Administration Sodium Chloride 1,000 mls @ 150 mls/hr 02/26/19 12:30 Normal Saline - IV ASDIR DURAN Sodium Chloride 1,000 mls @ 500 mls/hr 02/26/19 12:30 02/26/19 12:30 Normal Saline - IV 500 mls/hr ASDIR DURAN Administration Insulin Aspart 1 vial 02/26/19 07:00 02/26/19 12:16 Novolog Vial Sliding Scale - SQ Not Given ACHS [facility] Protocol Ketorolac Tromethamine 15 mg 02/25/19 15:30 02/26/19 10:00 Toradol Injection - IVPUSH 03/02/19 15:29 15 mg Q6H DURAN Administration Ondansetron HCl 4 mg 02/25/19 15:21 Zofran Injection IVPUSH Q4H PRN NAUSEA AND/OR VOMITING Abnormal Lab Results 02/25/19 02/25/19 02/25/19 11:55 15:27 15:30 WBC RBC 6.10 H Hgb Hct MCV 76.6 L MCH 24.3 L MCHC 31.7 L Monocytes % PT with INR INR Anion Gap BUN 19.0 H Creatinine 1.4 H Random Glucose 175 H Calcium AST 51 H Total Protein Albumin Crossmatch See Detail Crossmatch IS Only See Detail 02/26/19 02/26/19 02/26/19 07:15 07:15 12:41 WBC 19.2 H 18.8 H RBC Hgb 10.6 L 9.9 L Hct 32.8 L D 31.2 L MCV 76.5 L 77.3 L MCH 24.6 L 24.5 L MCHC 31.8 L Monocytes % 11.7 H PT with INR INR Anion Gap BUN 31.0 H Creatinine 2.7 H Random Glucose 169 H Calcium 8.0 L AST Total Protein 5.9 L Albumin 2.9 L Crossmatch Crossmatch IS Only 02/26/19 02/26/19 12:41 12:41 WBC RBC Hgb Hct MCV MCH MCHC Monocytes % PT with INR 13.9 H INR 1.25 H Anion Gap 5 L BUN 36.0 H Creatinine 3.0 H Random Glucose 151 H Calcium 7.6 L AST Total Protein 5.7 L Albumin 2.8 L Crossmatch Crossmatch IS Only Laboratory Tests 02/23/19 07:13 Hemoglobin A1c % 8.2 H plan: bgm q4h coverage for npo control sugars preop
[2019-02-26] MEDS: INSULIN SLIDING SCALE (NOVOLOG) 1 VIAL SQ SCH ×3 (14:46→23:57)
--- NOTE | 2019-02-26 15:18 | CONSULT ---
Consult - text type - Consultation Consultation Note: Renal consult for LUCAS This is a 53 year old gentleman with history of hypertension, DM not on insulin, hyperlipidemia, obesity who had elective gastric sleeve insertion and developed LUCAS. Pt seen and examined at the bedside. Has abdominal and incisional site pain. Has bleeidng from incision site. Is making urine (no hudson). Denies any sob, cp, fever or chills. Was noted to have hypotension early this am and overnight. No BM yet. No CARDOSO, confusion or lethargy. Did get toradol and Lasix. Now on IVF. PMhx: as above Allergies: NKDA Family Hx: NC Social Hx: No T/A/D ROS: as per HPI, all other pertinent ros negative Home Medications Medication Instructions Recorded Atorvastatin Ca [Lipitor] 40 mg PO HS 12/07/17 Losartan/Hydrochlorothiazide 1 each PO DAILY 01/15/19 [Losartan-Hctz 50-12.5 mg Tab] Sitagliptin Phosphate [Januvia] 100 mg PO DAILY 01/15/19 Amlodipine Besylate 10 mg PO DAILY 02/01/19 Furosemide [Lasix] 40 mg PO DAILY 02/01/19 Omeprazole 20 mg PO DAILY 02/01/19 Potassium Chloride [K-Dur -] 20 meq PO DAILY 02/01/19 Vital Signs Temperature 98.8 F 02/26/19 14:05 Pulse Rate 84 02/26/19 14:05 Respiratory Rate 18 02/26/19 14:05 Blood Pressure 154/72 02/26/19 14:05 O2 Sat by Pulse Oximetry (%) 96 02/26/19 14:05 Intake & Output 02/23/19 02/24/19 02/25/19 02/26/19 23:59 23:59 23:59 23:59 Intake Total 1150 3250 Output Total 300 400 Balance 850 2850 Weight 154.221 kg 154.221 kg 151.5 kg NAD awake and alert neck supple, on JVD RRR Dec BS, on rales + abd distension, abd pad in place no overt bladder distension no LE edema CBC, BMP 02/26/19 12:41 02/26/19 12:41 Current Medications Heparin Sodium (Porcine) (Heparin -) 1,000 unit SQ TID DURAN Famotidine/Sodium Chloride (Pepcid 20 Mg Premixed Ivpb -) 20 mg in 50 mls @ 100 mls/hr IVPB BID DURAN Last Admin: 02/26/19 09:54 Dose: 100 mls/hr Sodium Chloride (Normal Saline -) 1,000 mls @ 150 mls/hr IV ASDIR DURAN Sodium Chloride (Normal Saline -) 1,000 mls @ 500 mls/hr IV ASDIR DURAN Last Admin: 02/26/19 12:30 Dose: 500 mls/hr Insulin Aspart (Novolog Vial Sliding Scale -) 1 vial SQ Q4H DURAN; Protocol Last Admin: 02/26/19 14:46 Dose: Not Given Ondansetron HCl (Zofran Injection) 4 mg IVPUSH Q4H PRN PRN Reason: NAUSEA AND/OR VOMITING 53 year old gentleman with history of hypertension, DM not on insulin, hyperlipidemia, obesity who had elective gastric sleeve insertion and developed LUCAS. #LUCAS likely due to renal hypoprofuison in setting of post operative hypotension/ bleeding/ARB +/- ATN from NSAID use #Postoperative bleeding #Gastric Sleeve placement #History of hypertension #DM Check urine stuides for FeUrea, UPCR, UA, Urine Eosinophils Check Kidney and bladder US If Cr continues to rise will need hudson placement for output measurements continue IVF, keep MAP > 65 Transfuse as per surgery hold ARB/Diuretics/NSAIDs for now Repat BMP this evening Thank you will follow Etienne Mariscal DO
--- NOTE | 2019-02-26 16:15 | CONSULT ---
Consultation: REQUESTING PROVIDER: Dr. Wynn CONSULT REQUEST: We have been asked to medically evaluate this patient for ICU admission HISTORY OF PRESENT ILLNESS: Patient is a 53 year old male with history of morbid obesity, hypertension, non- insulin dependent diabetes mellitus POD #1 s/p gastric sleeve surgery. This morning, patient was noted to be hypotensive, and bleeding from incision site. Patient was bolused with normal saline and transfused 1 unit PRBC. He was transferred to [facility] [place] and taken for diagnostic laparoscopy, evacuation of blood clots, and control of intra-abdominal hemorrhage with oversewing of bleeding gastric staple line. EBL 1000cc including large blood clots, and fresh blood. Patient transfused additional unit of PRBC intra-operatively. Post- operatively, patient resting comfortably in no acute distress. REVIEW OF SYSTEMS: CONSTITUTIONAL: Absent: fever, chills, diaphoresis, generalized weakness, malaise, loss of appetite, weight change HEENT: Absent: rhinorrhea, nasal congestion, throat pain, throat swelling, difficulty swallowing, mouth swelling, ear pain, eye pain, visual changes CARDIOVASCULAR: Absent: chest pain, syncope, palpitations, irregular heart rate, lightheadedness , peripheral edema RESPIRATORY: Absent: cough, shortness of breath, dyspnea with exertion, orthopnea, wheezing, stridor, hemoptysis GASTROINTESTINAL: Admits: abdominal pain, abdominal distension. Absent: nausea, vomiting, diarrhea , constipation, melena, hematochezia GENITOURINARY: Absent: dysuria, frequency, urgency, hesitancy, hematuria, flank pain, genital pain MUSCULOSKELETAL: Absent: myalgia, arthralgia, joint swelling, back pain, neck pain SKIN: Absent: rash, itching, pallor HEMATOLOGIC/IMMUNOLOGIC: Absent: easy bleeding, easy bruising, lymphadenopathy, frequent infections ENDOCRINE: Absent: unexplained weight gain, unexplained weight loss, heat intolerance, cold intolerance NEUROLOGIC: Absent: headache, focal weakness or paresthesias, dizziness, unsteady gait, seizure, mental status changes, bladder or bowel incontinence PSYCHIATRIC: Absent: anxiety, depression, suicidal or homicidal ideation, hallucinations. PHYSICAL EXAMINATION Vital Signs - 24 hr 02/25/19 02/25/19 02/25/19 16:14 16:20 16:30 Temperature Pulse Rate 72 77 82 Respiratory 14 18 18 Rate Blood Pressure 164/94 164/95 151/87 O2 Sat by Pulse 95 95 95 Oximetry (%) 02/25/19 02/25/19 02/25/19 16:45 17:00 17:15 Temperature Pulse Rate 77 78 83 Respiratory 18 18 18 Rate Blood Pressure 154/91 155/87 166/58 L O2 Sat by Pulse 95 95 95 Oximetry (%) 02/25/19 02/25/19 02/25/19 17:30 17:45 18:00 Temperature 98.2 F Pulse Rate 83 79 82 Respiratory 18 18 18 Rate Blood Pressure 159/87 151/85 162/87 O2 Sat by Pulse 95 95 95 Oximetry (%) 02/25/19 02/25/19 02/25/19 18:17 18:21 20:00 Temperature 97.8 F Pulse Rate 81 80 Respiratory 14 Rate Blood Pressure 131/85 O2 Sat by Pulse 97 97 Oximetry (%) 02/25/19 02/25/19 02/26/19 20:19 21:30 01:59 Temperature 98.2 F 97.8 F Pulse Rate 82 103 H Respiratory 14 18 18 Rate Blood Pressure 110/74 111/66 O2 Sat by Pulse 97 95 Oximetry (%) 02/26/19 02/26/19 02/26/19 06:00 07:34 08:33 Temperature 98.7 F Pulse Rate 105 H Respiratory 19 19 Rate Blood Pressure 134/59 L O2 Sat by Pulse 95 95 Oximetry (%) 02/26/19 02/26/19 02/26/19 08:59 09:00 09:01 Temperature Pulse Rate 105 H 104 H Respiratory 16 Rate Blood Pressure 97/49 L 97/49 L O2 Sat by Pulse 97 93 L Oximetry (%) 02/26/19 02/26/19 02/26/19 09:46 10:30 11:25 Temperature 98.7 F Pulse Rate 104 H 100 H 108 H Respiratory 17 17 17 Rate Blood Pressure 114/57 L 113/54 L 83/53 L O2 Sat by Pulse 97 Oximetry (%) 02/26/19 02/26/19 02/26/19 11:29 11:47 12:15 Temperature 98.7 F Pulse Rate 102 H 98 H 95 H Respiratory 16 16 Rate Blood Pressure 93/60 113/54 L 119/73 O2 Sat by Pulse 96 97 Oximetry (%) 02/26/19 02/26/19 02/26/19 12:45 12:55 13:44 Temperature 98.6 F Pulse Rate 95 H 88 88 Respiratory 19 18 Rate Blood Pressure 140/62 135/72 154/72 O2 Sat by Pulse 95 96 95 Oximetry (%) 02/26/19 14:05 Temperature 98.8 F Pulse Rate 84 Respiratory 18 Rate Blood Pressure 154/72 O2 Sat by Pulse 96 Oximetry (%) GENERAL: Awake, alert, and fully oriented, in no acute distress. HEAD: Normocephalic, atraumatic. EYES: Pupils equal, round and reactive to light, extraocular movements intact, sclera anicteric. EARS, NOSE, THROAT: Oropharynx clear without exudates. Moist mucous membranes. NECK: Normal range of motion, supple without lymphadenopathy. LUNGS: Breath sounds equal, clear to auscultation bilaterally. No wheezes, and no crackles. No accessory muscle use. HEART: Regular rate and rhythm, normal S1 and S2 without murmur, rub or gallop. ABDOMEN: Obese abdomen, distended. Tender to palpation x4 quadrants. No rebound tenderness. Hypoactive bowel sounds x4 quadrants. Tympanic to percussion x4 quadrants. MUSCULOSKELETAL: Normal range of motion at all joints. No bony deformities or tenderness. EXTREMITIES: 2+ radial, dorsalis pedis pulses bilaterally. Warm, well-perfused. No peripheral edema. LOWER EXTREMITIES: 2+ pulses, warm, well-perfused. No calf tenderness. No peripheral edema. NEUROLOGICAL: Cranial nerves II-XII intact. Normal speech. PSYCHIATRIC: Cooperative. Good eye contact. Appropriate mood and affect. SKIN: Warm, dry. Abdominal surgical sites bandaged clean, dry, nonbleeding. Laboratory Results - last 24 hr 02/25/19 02/25/19 02/25/19 07:15 11:55 15:30 WBC RBC Hgb Hct MCV MCH MCHC RDW Plt Count MPV Absolute Neuts (auto) Neutrophils % Lymphocytes % Monocytes % Eosinophils % Basophils % PT with INR INR Sodium 138 Potassium 3.6 Chloride 100 Carbon Dioxide 28 Anion Gap 10 BUN 19.0 H Creatinine 1.4 H Est GFR (CKD-EPI)AfAm 65.09 Est GFR (CKD-EPI)NonAf 56.16 POC Glucometer Random Glucose 175 H Calcium 8.9 Total Bilirubin 0.7 AST 51 H ALT 47 Alkaline Phosphatase 81 Total Protein 7.7 Albumin 3.7 Blood Type O POSITIVE O POSITIVE Antibody Screen Negative Crossmatch See Detail Crossmatch IS Only See Detail 02/25/19 02/26/19 02/26/19 16:09 00:36 07:07 WBC RBC Hgb Hct MCV MCH MCHC RDW Plt Count MPV Absolute Neuts (auto) Neutrophils % Lymphocytes % Monocytes % Eosinophils % Basophils % PT with INR INR Sodium Potassium Chloride Carbon Dioxide Anion Gap BUN Creatinine Est GFR (CKD-EPI)AfAm Est GFR (CKD-EPI)NonAf POC Glucometer 185 189 166 Random Glucose Calcium Total Bilirubin AST ALT Alkaline Phosphatase Total Protein Albumin Blood Type Antibody Screen Crossmatch Crossmatch IS Only 02/26/19 02/26/19 02/26/19 07:15 07:15 11:58 WBC 19.2 H RBC 4.29 Hgb 10.6 L Hct 32.8 L D MCV 76.5 L MCH 24.6 L MCHC 32.2 RDW 14.4 Plt Count 257 MPV 9.2 Absolute Neuts (auto) Neutrophils % Lymphocytes % Monocytes % Eosinophils % Basophils % PT with INR INR Sodium 136 Potassium 4.6 Chloride 103 Carbon Dioxide 24 Anion Gap 9 BUN 31.0 H Creatinine 2.7 H Est GFR (CKD-EPI)AfAm 29.42 Est GFR (CKD-EPI)NonAf 25.39 POC Glucometer 139 Random Glucose 169 H Calcium 8.0 L Total Bilirubin 0.8 AST 31 ALT 36 Alkaline Phosphatase 54 D Total Protein 5.9 L Albumin 2.9 L Blood Type Antibody Screen Crossmatch Crossmatch IS Only 02/26/19 02/26/19 02/26/19 12:41 12:41 12:41 WBC 18.8 H RBC 4.04 Hgb 9.9 L Hct 31.2 L MCV 77.3 L MCH 24.5 L MCHC 31.8 L RDW 14.2 Plt Count 244 MPV 8.2 D Absolute Neuts (auto) 15.1 Neutrophils % 80.1 Lymphocytes % 8.0 Monocytes % 11.7 H Eosinophils % 0.0 Basophils % 0.2 PT with INR 13.9 H INR 1.25 H Sodium 136 Potassium 4.7 Chloride 105 Carbon Dioxide 26 Anion Gap 5 L BUN 36.0 H Creatinine 3.0 H Est GFR (CKD-EPI)AfAm 25.90 Est GFR (CKD-EPI)NonAf 22.35 POC Glucometer Random Glucose 151 H Calcium 7.6 L Total Bilirubin 0.7 AST 26 ALT 34 Alkaline Phosphatase 53 Total Protein 5.7 L Albumin 2.8 L Blood Type Antibody Screen Crossmatch Crossmatch IS Only Active Medications Generic Name Dose Route Start Last Admin Trade Name Freq PRN Reason Stop Dose Admin Heparin Sodium (Porcine) 1,000 unit 02/26/19 22:00 Heparin - SQ TID DURAN Famotidine/Sodium Chloride 20 mg in 50 mls @ 100 mls/hr 02/25/19 22:00 09:54 Pepcid 20 Mg Premixed Ivpb - IVPB 100 mls/hr BID DURAN Administration Sodium Chloride 1,000 mls @ 150 mls/hr 02/26/19 12:30 Normal Saline - IV ASDIR DURAN Sodium Chloride 1,000 mls @ 500 mls/hr 02/26/19 12:30 02/26/19 12:30 Normal Saline - IV 500 mls/hr ASDIR DURAN Administration Insulin Aspart 1 vial 02/26/19 14:01 02/26/19 14:46 Novolog Vial Sliding Scale - SQ Not Given Q4H [facility] Protocol Ondansetron HCl 4 mg 02/25/19 15:21 Zofran Injection IVPUSH Q4H PRN NAUSEA AND/OR VOMITING ASSESSMENT/PLAN: Patient is a 53 year old male with history of morbid obesity, hypertension, non- insulin dependent diabetes mellitus POD #1 s/p gastric sleeve surgery admitted to ICU after episode of hypotension and bleeding from surgical site. Neurologic -Patient is awake, alert, fully oriented. -Monitor for signs of mental status change Cardiac Hypertension Hyperlipidemia -Currently normotensive. Holding home antihypertensives. -Monitor hemodynamics closely. -Cardiac telemetry monitoring Pulmonary Sleep apnea - continue CPAP in evenings. -Currently saturating well on room air. -Monitor for change in oxygen demand. Maintain oxygen saturation greater than 90% Gastrointestinal -POD #1 s/p sleeve gastrectomy. POD #0 s/p diagnostic laparoscopy, evacuation of blood clots, and control of intra-abdominal hemorrhage with oversewing of bleeding gastric staple line. -General surgery recommendations (Dr. Wynn) appreciated. -NPO Infectious disease -Leukocytosis potentially secondary to surgical procedure. Patient afebrile. -Will monitor off antibiotics. Consider Infectious Disease consult if patient febrile, increase in WBC count Hematology -Patient is/p 2 unit PRBC -Hb currently stable at 10.5 postoperatively. Monitor for signs of bleeding. -Follow CBC. Maintain Hemoglobin greater than 7.0 Nephrologic LUCAS -Cr increased from baseline of 1.4 to 3.0 -Nephrology recommendations (Dr. Mariscal) appreciated; follow urine studies -Follow kidney, bladder ultrasound -Flores catheter inserted. Monitor intake and output. FEN -Fluids: IV normal saline at 200mL/ hour -Electrolytes: Within normal limits, follow CMP -Nutrition: NPO Prophylaxis -Currently holding chemical anticoagulation due to recent surgical intervention , and bleeding. SCDs, TEDs bilateral lower extremities. Disposition: We will continue to follow the patient. Thank you for this consultative opportunity. Visit type - Emergency Visit Emergency Visit: Yes ED Registration Date: 02/25/19 Care time: The patient presented to the Emergency Department on the above date and was hospitalized for further evaluation of their emergent condition. - New Patient This patient is new to me today: Yes Date on this admission: 02/26/19 - Critical Care Critical Care patient: Yes Total Critical Care Time (in minutes): 35 Critical Care Statement: The care of this patient involved high complexity decision making to prevent further life threatening deterioration of the patient 's condition and/or to evaluate & treat vital organ system(s) failure or risk of failure. ATTENDING PHYSICIAN STATEMENT I saw and evaluated the patient. I reviewed the resident's note and discussed the case with the resident. I agree with the resident's findings and plan as documented. SUBJECTIVE: OBJECTIVE: ASSESSMENT AND PLAN:
[2019-02-26] MEDS ORDERED: MIDAZOLAM HCL 2 MG/2 ML SINGLE DOSE VIAL ONE ×3 (17:16→20:05)
[2019-02-26] MEDS ORDERED: LIDOCAINE HCL 2% JELLY (5 ML/TUBE) ONE ×3 (17:17→19:48)
[2019-02-26] MEDS ORDERED: PROPOFOL 20 ML ONE (17:19)
[2019-02-26] MEDS ORDERED: SUCCINYLCHOLINE CHLORIDE 200 MG/10 ML SYRINGE ONE ×2 (17:20→22:41)
[2019-02-26] MEDS ORDERED: ROCURONIUM BROMIDE 50 MG/5 ML SYRINGE ONE (17:20)
[2019-02-26] MEDS ORDERED: LIDOCAINE HCL/PF 2% SDV 5ML VIAL ONE (17:21)
[2019-02-26 17:59] LABS: HEMATOCRIT 32.6 % (35.4-49); HEMOGLOBIN 10.5 GM/dL (11.7-16.9); MCH 24.3 pg (25.7-33.7); MCHC 32.2 g/dl (32.0-35.9); MEAN CELL VOLUME 75.5 fl (80-96); MEAN PLT VOLUME 9.4 fl (7.5-11.1); PLATELET COUNT 244 K/MM3 (134-434); RBC 4.31 M/mm3 (4.00-5.60); RDW 15.9 % (11.9-15.9); WHITE BLOOD COUNT 18.2 K/mm3 (4.0-10.0)
[2019-02-26 18:50] LABS: BLOOD UREA NITROGEN 36.9 mg/dL (7-18); CALCIUM 7.9 mg/dL (8.5-10.1); CREATININE 2.5 mg/dL (0.55-1.3); POTASSIUM 3.9 mmol/L (3.5-5.1)
[2019-02-26 19:48] LABS: URINE APPEARANCE CLEAR; URINE BILIRUBIN NEGATIVE (NEGATIVE); URINE COLOR YELLOW; URINE GLUCOSE (UA) NEGATIVE (NEGATIVE); URINE KETONE NEGATIVE (NEGATIVE); URINE LEUK ESTERASE NEGATIVE (NEGATIVE); URINE NITRITE NEGATIVE (NEGATIVE); URINE PROTEIN NEGATIVE (NEGATIVE); URINE UROBILINOGEN 0.2 mg/dL (0.2-1.0)
[2019-02-26] MEDS ORDERED: MINERAL OIL/PETROLATUM,WHITE 3.5 GM TUBE ONE (20:04)
[2019-02-26] MEDS ORDERED: ceFAZolin SODIUM 1 GM VIAL IVPB ONE (20:05)
[2019-02-26] MEDS ORDERED: ceFAZolin SODIUM 1 GM VIAL ONE (20:13)
[2019-02-26] MEDS ORDERED: DEXAMETHASONE SOD PHOSPHATE 4 MG/1 ML VIAL ONE (20:13)
[2019-02-26] MEDS ORDERED: PHENYLEPHRINE HCL 10 MG/1 ML SINGLE DOSE VIAL ONE (20:33)
[2019-02-26 20:35] LABS: URINE UREA NITROGEN 1054 mg/dL (350-1000)
[2019-02-26] MEDS ORDERED: HYDROmorphone HCl 2 MG/ML VIAL ONE (21:21)
[2019-02-26] MEDS ORDERED: BUPIVACAINE HCL/PF 0.25% (2.5MG/ML) 10 ML VIAL ONE (22:16)
--- NOTE | 2019-02-26 22:27 | OP ---
Operative Note - Note: Operative Date: 02/26/19 Pre-Operative Diagnosis: bleeding s/p vertical sleeve gastrectomy Operation: intraoperative endoscopy/EGD Post-Operative Diagnosis: Same as Pre-op Surgeon: Mariusz Chavarria Anesthesia: General Specimens Removed: none Operative Report Dictated: Yes
--- NOTE | 2019-02-26 23:24 | OP ---
Operative Note - Note: Operative Date: 02/26/19 Pre-Operative Diagnosis: Intra-abdominal hemorrhage. Hemorrhagic Shock Operation: Control of Intra-Abdominal Hemorrhage. Oversewing of bleeding Gastric staple line. Diagnostic Laparoscopy. Evacuation of blood clots Findings: Large amount of clots (800cc) and fresh blood (200cc) in LUQ adjacent to Gastric Sleeve. Staple line with 2 separate areas of bleeding noted. Post-Operative Diagnosis: Same as Pre-op Surgeon: Bakari Wynn Model And Pattern Supervisor: Mariusz Chavarria Anesthesia: General Estimated Blood Loss (mls): 1,000 Operative Report Dictated: Yes
[2019-02-26 23:26] LABS: HEMATOCRIT 32.4 % (35.4-49); HEMOGLOBIN 10.5 GM/dL (11.7-16.9); MCH 24.8 pg (25.7-33.7); MCHC 32.3 g/dl (32.0-35.9); MEAN CELL VOLUME 76.8 fl (80-96); MEAN PLT VOLUME 9.4 fl (7.5-11.1); PLATELET COUNT 219 K/MM3 (134-434); RBC 4.22 M/mm3 (4.00-5.60); WHITE BLOOD COUNT 21.3 K/mm3 (4.0-10.0)
--- NOTE | 2019-02-26 23:32 | PN ---
Progress Note (short form) - Note Progress Note: POD#1 Pt with tachycardia and hypotension this morning. CBC showed Hgb of 10.6 (was 14.8 post-op yesterday) Repeat H/H at 12:41 WAS 9.9 Pt received 1000cc fluid challenge in AM and BP improved to 119-140 systolic, while pulse dropped from 105 to 97 It was decided to transfer pt to [facility] for ICU care around 2:30 PM BUN/CR increased to 36/3.0 Nephrology was called as contract consultant and answered Pt continued to receive increased IV fluids in ICU, however pulse rate was 100- 105 and it was decided at 6 PM to return to OR for Laparoscopy plus control of hemorrhage. Details of surgery outlined in OR note. P- Follow H/H, BUN/CR, labs closely Ice chips tonight, clear liquids tomorrow CPAP for SAULO Nephrology, Endocrine, Medical F/U As per ICU team
[2019-02-26 23:57] LABS: ALBUMIN 2.9 g/dl (3.4-5.0); BILIRUBIN,TOTAL 0.4 mg/dL (0.2-1); BLOOD UREA NITROGEN 36.8 mg/dL (7-18); CALCIUM 7.4 mg/dL (8.5-10.1); CREATININE 2.6 mg/dL (0.55-1.3); POTASSIUM 4.5 mmol/L (3.5-5.1); TOT PROT 6.2 g/dl (6.4-8.2)
[2019-02-27] MEDS ORDERED: PT OWN MED DRAWER 7, Y5N ONE (00:28)
[2019-02-27] MEDS: SODIUM CHLORIDE 1,000 ML IV SCH ×5 (02:02→22:00)
[2019-02-27] MEDS: INSULIN SLIDING SCALE (NOVOLOG) 1 VIAL SQ SCH ×6 (02:03→21:01)
[2019-02-27] MEDS: ACETAMINOPHEN 1000 MG/100 ML VIAL (NON FORMULARY) IVPB PRN ×3 (06:02→21:05)
[2019-02-27 06:08] LABS: BASO % 0.3 % (0-2.0); HEMATOCRIT 28.5 % (35.4-49); HEMOGLOBIN 9.4 GM/dL (11.7-16.9); LYMPH % 6.1 % (8-40); MCH 24.9 pg (25.7-33.7); MEAN CELL VOLUME 75.5 fl (80-96); MEAN PLT VOLUME 9.2 fl (7.5-11.1); MONO % 11.3 % (3.8-10.2); NEUT % 82.3 % (42.8-82.8); PLATELET COUNT 205 K/MM3 (134-434); RBC 3.78 M/mm3 (4.00-5.60); RDW 15.7 % (11.9-15.9); WHITE BLOOD COUNT 18.5 K/mm3 (4.0-10.0)
[2019-02-27 06:37] LABS: MAGNESIUM 2.2 mg/dL (1.8-2.4); PHOSPHOROUS 2.9 mg/dL (2.5-4.9)
--- NOTE | 2019-02-27 07:56 | PN ---
Progress Note (short form) - Note Progress Note: RENAL Coverage for Dr Mariscal Pt is awake and alert now in ICU denies specific complaints Last Vital Signs Temp Pulse Resp BP Pulse Ox 98.4 F 82 16 113/68 96 02/27/19 06:00 02/27/19 06:00 02/27/19 06:00 02/27/19 06:00 02/27/19 02:12 lungs bilat air entry cvs s1s2 rr abd soft, surgical incisions noted dry and clean ext no edema, has dvt boots hudson in place neuro awake CBC, BMP 02/27/19 05:40 Current Medications Generic Name Dose Route Start Last Admin Trade Name Freq PRN Reason Stop Dose Admin Acetaminophen 1,000 mg 02/26/19 23:13 02/27/19 06:02 Ofirmev Injection - IVPB 1,000 mg Q6H PRN Administration PAIN OR FEVER Heparin Sodium (Porcine) 1,000 unit 02/26/19 22:00 Heparin - SQ TID DURAN Famotidine/Sodium Chloride 20 mg in 50 mls @ 100 mls/hr 02/25/19 22:00 23:00 Pepcid 20 Mg Premixed Ivpb - IVPB 100 mls/hr BID DURAN Administration Sodium Chloride 1,000 mls @ 500 mls/hr 02/26/19 12:30 02/26/19 12:30 Normal Saline - IV 500 mls/hr ASDIR DURAN Administration Sodium Chloride 1,000 mls @ 200 mls/hr 02/26/19 18:18 02/27/19 02:02 Normal Saline - IV 200 mls/hr ASDIR DURAN Administration Insulin Aspart 1 vial 02/26/19 14:01 02/27/19 06:02 Novolog Vial Sliding Scale - SQ Not Given Q4H DURAN Protocol Ondansetron HCl 4 mg 02/25/19 15:21 Zofran Injection IVPUSH Q4H PRN NAUSEA AND/OR VOMITING 53 year old gentleman with history of hypertension, DM not on insulin, hyperlipidemia, obesity who had elective gastric sleeve insertion and developed LUCAS. #LUCAS likely due to renal hypoprofuison in setting of post operative hypotension/ bleeding/ARB +/- ATN from NSAID use #Postoperative bleeding #Gastric Sleeve placement #History of hypertension #DM Plan would continue hydration, note his urine sodium is very low which is consistent with a prerenal condition obtain CK monitor hgb given significant drop would keep monitoring output with hudson MV
[2019-02-27 08:05] LABS: ALBUMIN 2.6 g/dl (3.4-5.0); BILIRUBIN,TOTAL 0.5 mg/dL (0.2-1); BLOOD UREA NITROGEN 33.9 mg/dL (7-18); CALCIUM 7.4 mg/dL (8.5-10.1); POTASSIUM 4.6 mmol/L (3.5-5.1); TOT PROT 5.7 g/dl (6.4-8.2)
--- NOTE | 2019-02-27 08:26 | PN ---
Progress Note (short form) - Note Progress Note: Anesthesia post op Pt seen and examined S:Alert and awake O: Vital Signs Temperature 98.4 F 02/27/19 06:00 Pulse Rate 82 02/27/19 06:00 Respiratory Rate 16 02/27/19 06:00 Blood Pressure 113/68 02/27/19 06:00 O2 Sat by Pulse Oximetry (%) 96 02/27/19 02:12 CBC, BMP 02/27/19 05:40 02/27/19 05:40 A/P: Current Active Problems LUCAS (acute kidney injury) (Acute) Diabetes mellitus (Acute) Post op bleeding repair Doing well post op No apparent anesthesia related complications noted Continue current care Jayce Uribe MD
--- NOTE | 2019-02-27 08:59 | OP ---
DATE OF OPERATION: 02/26/2019 PREOPERATIVE DIAGNOSIS: Bleeding intra-abdominal hemorrhage status post vertical sleeve gastrectomy. POSTOPERATIVE DIAGNOSIS: Bleeding intra-abdominal hemorrhage status post vertical sleeve gastrectomy. PROCEDURE: Intraoperative endoscopy/esophagogastroduodenoscopy. SPECIMEN: None. REASON FOR PROCEDURE: This is a 53-year-old gentleman who had a vertical sleeve gastrectomy the day prior. He was noted to have a drop in his hemoglobin and hematocrit and was tachycardic. Because of this, he was consented for a diagnostic laparoscopy and control of intraoperative hemorrhage, possible upper endoscopy. The risks and benefits of the procedure were explained by Dr. Bakari Wynn, the primary surgeon. DESCRIPTION OF PROCEDURE: After the patient was brought into the operating room and the diagnostic laparoscopy for abdominal washout and control of the abdominal hemorrhage was begun to further aide in visualization, upper endoscopy was requested. The endoscope was placed into the patient's mouth and advanced into the esophagus, gastroesophageal junction, and gastric sleeve. The entirety of the sleeve was inspected, and no bleeding within the gastric lumen was noted. In addition, no evidence of obstruction was noted. The stomach was suctioned so that the remainder of the case could be performed with better visualization. The endoscope was kept within the stomach for the entirety of the case. Please refer to Dr. Bakari Wynn's operative report for the laparoscopic portion of the case. After control of the intraoperative hemorrhage was obtained and the procedure completed, the scope was removed in its entirety and sent off the field. The patient was transferred back to ICU and continued to be monitored. DOMONIQUE MURRAY M.D. [id number]
[2019-02-27] MEDS: FAMOTIDINE 20 MG/50 ML IVPB 20 MG/50 ML MG IVPB SCH ×2 (09:04→21:06)
--- NOTE | 2019-02-27 09:46 | OP ---
DATE OF OPERATION: 02/26/2019 PREOPERATIVE DIAGNOSIS: 1. Intraabdominal hemorrhage. 2. Hemorrhagic shock. POSTOPERATIVE DIAGNOSIS: 1. Intraabdominal hemorrhage. 2. Hemorrhagic shock. 3. Bleeding from the staple line. PROCEDURE PERFORMED: 1. Diagnostic laparoscopy. 2. Control of intraabdominal hemorrhage. 3. Oversewing of gastric staple line. 4. Evacuation of clot. OPERATING SURGEON: Bakari Wynn MD FORESTRY EXTENSION SPECIALIST: Mariusz Chavarria MD ANESTHESIA: General. OPERATIVE PROCEDURE: The patient was brought into the operating room, placed on the OR table in supine position. All precautions were taken initially including padding for the back and the feet, and Venodyne boots were placed on both lower extremities. At that point, the abdomen was prepped and draped in the usual manner. A No. 15 trocar site in the midline from 24 hours previously was opened, and a No. 12 bladeless trocar was placed into the abdomen and pneumoperitoneum was established. Under direct vision, two No. 5 trocars were placed in the left upper quadrant, one below the left costal margin. One No. 5 trocar was then placed below the right costal margin, and these were all in the same trocar site as the previous surgery. A Chelsie Liver Retractor was then placed in the epigastrium to retract the left lobe of the liver. Immediately upon entering the abdomen, the patient was placed in reverse Trendelenburg position by Anesthesia. There was noted to be a large amount of blood and clot in the left upper quadrant in the area of the previous gastric sleeve surgery. The irrigation was placed high in the suction, and this was used to suck out as many clots as possible. This was done by the operating and the junior sales assistant surgeons and included suction, but also grabbing the clots with the grasper and removing it from the abdominal cavity. Once some clearing was noted, there was noted to be bleeding from the staple line in the mid portion of the staple line. The Endo Stitch was then used to oversew the staple line in this portion, and this was done until the bleeding from the staple line that was noted was now cured. Blood clots were also suctioned more lower rather than just the mid portion and here again, when the blood clots were removed from the staple line, there was noted to be bleeding from the staple line in the lower portion of the gastric sleeve. Once again, the Endo Stitch was used multiple throws to control the bleeding, and when it was tied, the bleeding was now controlled. At this juncture, Dr. Chavarria scrubbed out of the surgery and performed an upper endoscopy. He was able to look at the sleeve from inside, which appeared normal, and also was able to decompress the stomach so that it gave better visualization for the rest of the surgery. Attention was now directed in the upper portion of the sleeve, and some very large blood clots were noted. These blood clots were then removed with suction also physically with laparoscopic instrument until the staple line was noted and no bleeding was noted from there. Attention was now directed to the short gastric vessels, which were dissected off the greater curve prior to the sleeve. In this area, there were a lot of blood clots, but once they were removed, no signs of any active bleeding were noted. At that point, most of the clots had been removed, but the rest were removed with suction, and there was blood over the right lobe of the liver which was suctioned until dry. At this point, Surgicel was placed along the staple line and also along the raw edges of the short gastric vessels on the omentum, and this was done form the top of the staple line in multiple Surgicel pieces all the way to the bottom of the staple line. At this point, under direct vision, all trocars were removed and the pneumoperitoneum was released. All trocar sites received 0.25% Marcaine. The No. 12 trocar site was closed with 3-0 Vicryl under subcutaneous tissue. Then, all trocar sites were closed with dana and dressings were applied. Patient awoke from anesthesia and transferred out of the operating room to the ICU in guarded condition. ANESTHESIA CASE: General. SURGEON: Bakari Wynn MD FORESTRY EXTENSION SPECIALIST: Mariusz Chavarria MD EXPECTED BLOOD LOSS: There was approximately 800 mL of clot, then 200 mL of fresh blood. Addison [id number]
--- NOTE | 2019-02-27 11:08 | PN ---
Teaching Attending Note Name of Resident: Jayce Person ATTENDING PHYSICIAN STATEMENT I saw and evaluated the patient. I reviewed the resident's note and discussed the case with the resident. I agree with the resident's findings and plan as documented. SUBJECTIVE: Pt seen and examined in the ICU. c/o incisional pain especially with coughing. H /H this AM down. Denies shortness of breath or chest pain. OBJECTIVE: Vital Signs Period Temp Pulse Resp BP Sys/Cai Pulse Ox Last 24 Hr 97.9 F-98.8 F 75-108 15-22 83-155/53-96 93-97 Intake & Output 02/24/19 02/25/19 02/26/19 02/27/19 23:59 23:59 23:59 23:59 Intake Total 1150 6450 1600 Output Total 300 1350 1500 Balance 850 5100 100 Weight 154.221 kg 154.221 kg 151.5 kg 154.221 kg Gen: somnolent but arousable Heart: RRR Lung: decreased breath sounds at the bases Abd: soft, appropriately tender, dressings clean Ext: no edema CBC, BMP 02/27/19 05:40 02/27/19 05:40 Active Medications Acetaminophen (Ofirmev Injection -) 1,000 mg IVPB Q6H PRN PRN Reason: PAIN OR FEVER Last Admin: 02/27/19 06:02 Dose: 1,000 mg Heparin Sodium (Porcine) (Heparin -) 1,000 unit SQ TID DURAN Famotidine/Sodium Chloride (Pepcid 20 Mg Premixed Ivpb -) 20 mg in 50 mls @ 100 mls/hr IVPB BID DURAN Last Admin: 02/27/19 09:04 Dose: 100 mls/hr Sodium Chloride (Normal Saline -) 1,000 mls @ 500 mls/hr IV ASDIR DURAN Last Admin: 02/26/19 12:30 Dose: 500 mls/hr Sodium Chloride (Normal Saline -) 1,000 mls @ 200 mls/hr IV ASDIR DURAN Last Admin: 02/27/19 02:02 Dose: 200 mls/hr Insulin Aspart (Novolog Vial Sliding Scale -) 1 vial SQ Q4H [facility]; Protocol Last Admin: 02/27/19 11:05 Dose: Not Given Ondansetron HCl (Zofran Injection) 4 mg IVPUSH Q4H PRN PRN Reason: NAUSEA AND/OR VOMITING ASSESSMENT AND PLAN: Morbid Obesity s/p Laparoscopic Gastric Sleeve Post op Bleeding Acute Blood Loss Anemia s/p Hematoma Evacuation Acute Kidney Injury DM Hyperlipidemia - monitor H/H - transfuse as needed - pain control - incentive spirometry - IVF - monitor urine output, creatinine - PO as tolerated - DVT prophylaxis - disposition per surgery
--- NOTE | 2019-02-27 12:04 | PN ---
Progress Note (short form) - Note Progress Note: POD#1, #2 Renal, Anesthesia, ICU notes appreciated Afebrile; P-75; BP-125/80; SaO2-97% Pt on CPAP States comfortable Tolerating PO ice chips P/E- Abd- slight distention; trocar incisions healing well U.O- 1500 cc , clear WBC-18.5 (decreased) H/H-9.4/28.5 (slight decreased) BUN/CR-33.9/2.0 (decreased) I-S/P RE-exploration for abdominal bleeding S/P Gastric Sleeve Improving Renal function- urine output with decreasing BUN/CR H/H slightly decreased Improved V/S P- Begin clear liquid diet- 3oz PO 4-5 times/day (Post Gastric Sleeve diet) OOB to chair (change bed to chair position 2-3 times per day to improve pulmonary function) Continue CPAP Moniter H/H, labs Continue DVT prophylaxis with TEDS, SCD's Continue as per ICU team
--- NOTE | 2019-02-27 12:40 | PN ---
Physical Exam: SUBJECTIVE: Patient seen and examined at bedside. Complains of mild pain in the lower abdomen, otherwise no acute distress. OBJECTIVE: Vital Signs Period Temp Pulse Resp BP Sys/Cai Pulse Ox Last 24 Hr 97.9 F-98.8 F 75-107 15-22 113-155/62-96 93-97 GENERAL: A&Ox3, no acute distress EYES: PERRLA, EOMI ENT: Moist mucus membranes NECK: No JVD LUNGS: CTA, no wheezes HEART: RRR, no murmurs ABDOMEN: Obese, Soft, nontender, BS present, several small laparoscopy scars noted MUSCULOSKELETAL: No CVA Tenderness EXTREMITIES: 2+ pulses, no edema. NEUROLOGICAL: Cranial nerves II-XII intact. Laboratory Results - last 24 hr 02/25/19 02/26/19 02/26/19 11:55 12:41 12:41 WBC 18.8 H RBC 4.04 Hgb 9.9 L Hct 31.2 L MCV 77.3 L MCH 24.5 L MCHC 31.8 L RDW 14.2 Plt Count 244 MPV 8.2 D Absolute Neuts (auto) 15.1 Neutrophils % 80.1 Lymphocytes % 8.0 Monocytes % 11.7 H Eosinophils % 0.0 Basophils % 0.2 Nucleated RBC % PT with INR INR Sodium 136 Potassium 4.7 Chloride 105 Carbon Dioxide 26 Anion Gap 5 L BUN 36.0 H Creatinine 3.0 H Est GFR (CKD-EPI)AfAm 25.90 Est GFR (CKD-EPI)NonAf 22.35 POC Glucometer Random Glucose 151 H Hemoglobin A1c % Calcium 7.6 L Phosphorus Magnesium Iron TIBC Iron Saturation Unsaturated IBC Total Bilirubin 0.7 AST 26 ALT 34 Alkaline Phosphatase 53 Total Protein 5.7 L Albumin 2.8 L Urine Color Urine Appearance Urine pH Ur Specific Fraser Urine Protein Urine Glucose (UA) Urine Ketones Urine Blood Urine Nitrite Urine Bilirubin Urine Urobilinogen Ur Leukocyte Esterase U Random Total Protein Ur Random Sodium Ur Random Potassium Ur Random Chloride Ur Random Urea Nitrogn Urine Creatinine Protein/Creatinin Ratio Blood Type O POSITIVE Antibody Screen Negative Crossmatch See Detail Crossmatch IS Only See Detail 02/26/19 02/26/19 02/26/19 12:41 17:35 17:35 WBC 18.2 H RBC 4.31 Hgb 10.5 L Hct 32.6 L D MCV 75.5 L MCH 24.3 L MCHC 32.2 RDW 15.9 Plt Count 244 MPV 9.4 Absolute Neuts (auto) Neutrophils % Lymphocytes % Monocytes % Eosinophils % Basophils % Nucleated RBC % PT with INR 13.9 H INR 1.25 H Sodium 140 Potassium 3.9 Chloride 106 Carbon Dioxide 25 Anion Gap 9 BUN 36.9 H Creatinine 2.5 H Est GFR (CKD-EPI)AfAm 32.29 Est GFR (CKD-EPI)NonAf 27.86 POC Glucometer Random Glucose 143 H Hemoglobin A1c % Calcium 7.9 L Phosphorus Magnesium Iron TIBC Iron Saturation Unsaturated IBC Total Bilirubin AST ALT Alkaline Phosphatase Total Protein Albumin Urine Color Urine Appearance Urine pH Ur Specific Fraser Urine Protein Urine Glucose (UA) Urine Ketones Urine Blood Urine Nitrite Urine Bilirubin Urine Urobilinogen Ur Leukocyte Esterase U Random Total Protein Ur Random Sodium Ur Random Potassium Ur Random Chloride Ur Random Urea Nitrogn Urine Creatinine Protein/Creatinin Ratio Blood Type Antibody Screen Crossmatch Crossmatch IS Only 02/26/19 02/26/19 02/26/19 18:00 18:00 18:00 WBC RBC Hgb Hct MCV MCH MCHC RDW Plt Count MPV Absolute Neuts (auto) Neutrophils % Lymphocytes % Monocytes % Eosinophils % Basophils % Nucleated RBC % PT with INR INR Sodium Potassium Chloride Carbon Dioxide Anion Gap BUN Creatinine Est GFR (CKD-EPI)AfAm Est GFR (CKD-EPI)NonAf POC Glucometer Random Glucose Hemoglobin A1c % Calcium Phosphorus Magnesium Iron TIBC Iron Saturation Unsaturated IBC Total Bilirubin AST ALT Alkaline Phosphatase Total Protein Albumin Urine Color Yellow Urine Appearance Clear Urine pH 5.0 Ur Specific Fraser 1.021 Urine Protein Negative Urine Glucose (UA) Negative Urine Ketones Negative Urine Blood Negative Urine Nitrite Negative Urine Bilirubin Negative Urine Urobilinogen 0.2 Ur Leukocyte Esterase Negative U Random Total Protein 33.2 H Ur Random Sodium < 18 L < 18 L Ur Random Potassium 47.1 Ur Random Chloride < 11 L Ur Random Urea Nitrogn 1054 H Urine Creatinine 251.0 Protein/Creatinin Ratio 0.130 Blood Type Antibody Screen Crossmatch Crossmatch IS Only 02/26/19 02/26/19 02/26/19 23:15 23:15 23:40 WBC 21.3 H RBC 4.22 Hgb 10.5 L Hct 32.4 L MCV 76.8 L MCH 24.8 L MCHC 32.3 RDW 16.0 H Plt Count 219 MPV 9.4 Absolute Neuts (auto) Neutrophils % Lymphocytes % Monocytes % Eosinophils % Basophils % Nucleated RBC % PT with INR INR Sodium 140 Potassium 4.5 Chloride 108 H Carbon Dioxide 23 Anion Gap 8 BUN 36.8 H Creatinine 2.6 H Est GFR (CKD-EPI)AfAm 30.80 Est GFR (CKD-EPI)NonAf 26.57 POC Glucometer 173 Random Glucose 168 H Hemoglobin A1c % Calcium 7.4 L Phosphorus Magnesium Iron TIBC Iron Saturation Unsaturated IBC Total Bilirubin 0.4 AST 36 ALT 50 Alkaline Phosphatase 67 Total Protein 6.2 L Albumin 2.9 L Urine Color Urine Appearance Urine pH Ur Specific Fraser Urine Protein Urine Glucose (UA) Urine Ketones Urine Blood Urine Nitrite Urine Bilirubin Urine Urobilinogen Ur Leukocyte Esterase U Random Total Protein Ur Random Sodium Ur Random Potassium Ur Random Chloride Ur Random Urea Nitrogn Urine Creatinine Protein/Creatinin Ratio Blood Type Antibody Screen Crossmatch Crossmatch IS Only 02/27/19 02/27/19 02/27/19 05:40 05:40 05:40 WBC 18.5 H RBC 3.78 L Hgb 9.4 L Hct 28.5 L MCV 75.5 L MCH 24.9 L MCHC 33.0 RDW 15.7 Plt Count 205 MPV 9.2 Absolute Neuts (auto) 15.2 H Neutrophils % 82.3 D Lymphocytes % 6.1 L D Monocytes % 11.3 H Eosinophils % 0.0 D Basophils % 0.3 Nucleated RBC % 0 PT with INR INR Sodium 142 Potassium 4.6 Chloride 109 H Carbon Dioxide 27 Anion Gap 6 L BUN 33.9 H Creatinine 2.0 H Est GFR (CKD-EPI)AfAm 42.29 Est GFR (CKD-EPI)NonAf 36.49 POC Glucometer Random Glucose 150 H Hemoglobin A1c % 7.7 H Calcium 7.4 L Phosphorus 2.9 Magnesium 2.2 Iron 12 L TIBC 262 Iron Saturation 4 L Unsaturated IBC 250 Total Bilirubin 0.5 AST 31 ALT 47 Alkaline Phosphatase 60 Total Protein 5.7 L Albumin 2.6 L Urine Color Urine Appearance Urine pH Ur Specific Fraser Urine Protein Urine Glucose (UA) Urine Ketones Urine Blood Urine Nitrite Urine Bilirubin Urine Urobilinogen Ur Leukocyte Esterase U Random Total Protein Ur Random Sodium Ur Random Potassium Ur Random Chloride Ur Random Urea Nitrogn Urine Creatinine Protein/Creatinin Ratio Blood Type Antibody Screen Crossmatch Crossmatch IS Only 02/27/19 02/27/19 05:57 10:59 WBC RBC Hgb Hct MCV MCH MCHC RDW Plt Count MPV Absolute Neuts (auto) Neutrophils % Lymphocytes % Monocytes % Eosinophils % Basophils % Nucleated RBC % PT with INR INR Sodium Potassium Chloride Carbon Dioxide Anion Gap BUN Creatinine Est GFR (CKD-EPI)AfAm Est GFR (CKD-EPI)NonAf POC Glucometer 149 126 Random Glucose Hemoglobin A1c % Calcium Phosphorus Magnesium Iron TIBC Iron Saturation Unsaturated IBC Total Bilirubin AST ALT Alkaline Phosphatase Total Protein Albumin Urine Color Urine Appearance Urine pH Ur Specific Fraser Urine Protein Urine Glucose (UA) Urine Ketones Urine Blood Urine Nitrite Urine Bilirubin Urine Urobilinogen Ur Leukocyte Esterase U Random Total Protein Ur Random Sodium Ur Random Potassium Ur Random Chloride Ur Random Urea Nitrogn Urine Creatinine Protein/Creatinin Ratio Blood Type Antibody Screen Crossmatch Crossmatch IS Only Active Medications Generic Name Dose Route Start Last Admin Trade Name Freq PRN Reason Stop Dose Admin Acetaminophen 1,000 mg 02/26/19 23:13 02/27/19 12:14 Ofirmev Injection - IVPB 1,000 mg Q6H PRN Administration PAIN OR FEVER Heparin Sodium (Porcine) 1,000 unit 02/26/19 22:00 Heparin - SQ TID DURAN Famotidine/Sodium Chloride 20 mg in 50 mls @ 100 mls/hr 02/25/19 22:00 09:04 Pepcid 20 Mg Premixed Ivpb - IVPB 100 mls/hr BID DURAN Administration Sodium Chloride 1,000 mls @ 500 mls/hr 02/26/19 12:30 02/26/19 12:30 Normal Saline - IV 500 mls/hr ASDIR DURAN Administration Sodium Chloride 1,000 mls @ 200 mls/hr 02/26/19 18:18 02/27/19 02:02 Normal Saline - IV 200 mls/hr ASDIR DURAN Administration Insulin Aspart 1 vial 02/26/19 14:01 02/27/19 11:05 Novolog Vial Sliding Scale - SQ Not Given Q4H DURAN Protocol Ondansetron HCl 4 mg 02/25/19 15:21 Zofran Injection IVPUSH Q4H PRN NAUSEA AND/OR VOMITING ASSESSMENT/PLAN: 53 year old male with history of morbid obesity, hypertension, non-insulin dependent diabetes mellitus POD #2 s/p gastric sleeve surgery and POD #1 diagnostic laparoscopy for acute bleeding Neurologic -no acute abnormalities Cardiac -history of Hypertension, currently normotensive -monitor BP for hypotension Pulmonary -hx of sleep apnea, continue CPAP in evenings. -duoneb treatment for mild wheezing this morning Gastrointestinal -POD #2 s/p sleeve gastrectomy. POD #1 s/p diagnostic laparoscopy, evacuation of blood clots, and control of intra-abdominal hemorrhage with oversewing of bleeding gastric staple line. -General surgery recommendations (Dr. Wynn) appreciated. -advanced to clear liquid diet -passing gas -decreased pain -H&H stable Hematology -s/p 2 U PRBCs -hgb has been stable -normal transfusion thresholds Nephrologic -new LUCAS, likely 2/2 hypovolemia and acute blood loss -follow nephro recommendations -trend creatinine FEN -continue to hydrate -replete lytes as necessary -clear liquid diet Prophylaxis -SCDs Disposition: -if hgb stable can transfer to med surg Visit type - Emergency Visit Emergency Visit: No - New Patient This patient is new to me today: No - Critical Care Critical Care patient: Yes Total Critical Care Time (in minutes): 39 Critical Care Statement: The care of this patient involved high complexity decision making to prevent further life threatening deterioration of the patient 's condition and/or to evaluate & treat vital organ system(s) failure or risk of failure. ATTENDING PHYSICIAN STATEMENT I saw and evaluated the patient. I reviewed the resident's note and discussed the case with the resident. I agree with the resident's findings and plan as documented. SUBJECTIVE: OBJECTIVE: ASSESSMENT AND PLAN:
[2019-02-27] MEDS ORDERED: ALBUTEROL SO4 2.5/IPRATROPIUM 0.5 INH SOL 3 ML VIAL.NEB. NEB ONE (13:15)
[2019-02-27 15:52] LABS: HEMATOCRIT 27.6 % (35.4-49); HEMOGLOBIN 8.8 GM/dL (11.7-16.9); MCH 24.4 pg (25.7-33.7); MEAN CELL VOLUME 76.2 fl (80-96); MEAN PLT VOLUME 9.3 fl (7.5-11.1); PLATELET COUNT 209 K/MM3 (134-434); RBC 3.62 M/mm3 (4.00-5.60); RDW 15.8 % (11.9-15.9); WHITE BLOOD COUNT 16.6 K/mm3 (4.0-10.0)
--- NOTE | 2019-02-27 20:27 | PN ---
Progress Note, Physician Chief Complaint: Laparoscopic Vertical Sleeve Gastrectomy. Intra-abdominal hemorrhage History of Present Illness: NAD in bed weak but feels a bit better POD 2 control of intra-abdominal bleed - Current Medication List Current Medications: Active Medications Acetaminophen (Ofirmev Injection -) 1,000 mg IVPB Q6H PRN PRN Reason: PAIN OR FEVER Last Admin: 02/27/19 12:14 Dose: 1,000 mg Heparin Sodium (Porcine) (Heparin -) 1,000 unit SQ TID [facility] Famotidine/Sodium Chloride (Pepcid 20 Mg Premixed Ivpb -) 20 mg in 50 mls @ 100 mls/hr IVPB BID DURAN Last Admin: 02/27/19 09:04 Dose: 100 mls/hr Sodium Chloride (Normal Saline -) 1,000 mls @ 500 mls/hr IV ASDIR DURAN Last Admin: 02/27/19 13:40 Dose: Not Given Sodium Chloride (Normal Saline -) 1,000 mls @ 200 mls/hr IV ASDIR DURAN Last Admin: 02/27/19 18:31 Dose: 200 mls/hr Insulin Aspart (Novolog Vial Sliding Scale -) 1 vial SQ Q4H [facility]; Protocol Last Admin: 02/27/19 18:31 Dose: Not Given Ondansetron HCl (Zofran Injection) 4 mg IVPUSH Q4H PRN PRN Reason: NAUSEA AND/OR VOMITING - Objective Vital Signs: Vital Signs Temperature 98.1 F 02/27/19 18:00 Pulse Rate 82 02/27/19 18:00 Respiratory Rate 17 02/27/19 18:00 Blood Pressure 130/70 02/27/19 18:00 O2 Sat by Pulse Oximetry (%) 97 02/27/19 09:35 Constitutional: Yes: Well Nourished, No Distress, Calm, Obese Cardiovascular: Yes: Regular Rate and Rhythm Respiratory: Yes: Diminished, On Nasal O2 Gastrointestinal: Yes: Abdomen, Obese, Hypoactive Bowel Sounds, Tenderness ( incisional) Genitourinary: Yes: Flores Present Musculoskeletal: Yes: Muscle Weakness Extremities: Yes: WNL Edema: No Peripheral Pulses WNL: Yes Wound/Incision: Yes: Dressing Dry and Intact Neurological: Yes: Alert, Oriented Psychiatric: Yes: Alert, Oriented Labs: CBC, BMP 02/27/19 15:02 02/27/19 05:40 INR, PTT INR 1.25 (0.82-1.09) H 02/26/19 12:41 Problem List - Problems (1) Anemia Assessment/Plan: -2/2 to blood loss -POD 2 evacuation of blood from intra-abd bleed -Received PRBC -monitor trend -IVF Code(s): D64.9 - ANEMIA, UNSPECIFIED (2) Intra abdominal hemorrhage Assessment/Plan: -Seen by surgery -Bleeding controlled in OR -close ICU monitoring Code(s): R58 - HEMORRHAGE, NOT ELSEWHERE CLASSIFIED (3) LUCAS (acute kidney injury) Assessment/Plan: -nephrology consult appreciated -Cr improved -Continue IVF -Monitor trend Code(s): N17.9 - ACUTE KIDNEY FAILURE, UNSPECIFIED (4) Diabetes mellitus Assessment/Plan: -a1c at 7.7 -BGM AC HS -ISS -advance diet as per surgery Code(s): E11.9 - TYPE 2 DIABETES MELLITUS WITHOUT COMPLICATIONS Qualifiers: Diabetes mellitus type: due to underlying condition Diabetes mellitus complication status: with diabetic arthropathy (5) HTN (hypertension) Assessment/Plan: -All BP meds on hold for hypotension upon admission 2/2 to blood loss -monitor trend and resume meds as indicated Code(s): I10 - ESSENTIAL (PRIMARY) HYPERTENSION (6) Morbid obesity with BMI of 45.0-49.9, adult Code(s): E66.01 - MORBID (SEVERE) OBESITY DUE TO EXCESS CALORIES; Z68.42 - BODY MASS INDEX (BMI) 45.0-49.9, ADULT Assessment/Plan see problem list
[2019-02-28] MEDS: INSULIN SLIDING SCALE (NOVOLOG) 1 VIAL SQ SCH ×3 (03:41→11:22)
[2019-02-28 05:56] LABS: HEMATOCRIT 23.5 % (35.4-49); HEMOGLOBIN 7.7 GM/dL (11.7-16.9); MCH 24.7 pg (25.7-33.7); MCHC 32.5 g/dl (32.0-35.9); MEAN CELL VOLUME 75.8 fl (80-96); MEAN PLT VOLUME 8.5 fl (7.5-11.1); PLATELET COUNT 195 K/MM3 (134-434); RDW 15.4 % (11.9-15.9); WHITE BLOOD COUNT 12.9 K/mm3 (4.0-10.0)
[2019-02-28 06:26] LABS: BLOOD UREA NITROGEN 16.9 mg/dL (7-18); CALCIUM 7.6 mg/dL (8.5-10.1); CREATININE 1.1 mg/dL (0.55-1.3); POTASSIUM 3.8 mmol/L (3.5-5.1)
[2019-02-28] MEDS: ACETAMINOPHEN 1000 MG/100 ML VIAL (NON FORMULARY) IVPB PRN (06:38)
[2019-02-28] MEDS: SODIUM CHLORIDE 1,000 ML IV SCH ×4 (06:39→21:53)
--- NOTE | 2019-02-28 07:38 | PN ---
Progress Note (short form) - Note Progress Note: RENAL Coverage for Dr Mariscal Pt is awake and alert now in ICU does not want his hudson removed because he cant control his penis Last Vital Signs Temp Pulse Resp BP Pulse Ox 98.2 F 74 17 130/74 94 L 02/28/19 04:00 02/28/19 06:00 02/28/19 06:00 02/28/19 06:00 02/27/19 20:53 lungs bilat air entry cvs s1s2 rr abd soft, surgical incisions noted dry and clean ext no edema, has dvt boots hudson in place, making a lot of urine neuro awake CBC, BMP 02/28/19 05:40 02/28/19 05:40 Current Medications Generic Name Dose Route Start Last Admin Trade Name Freq PRN Reason Stop Dose Admin Heparin Sodium (Porcine) 1,000 unit 02/26/19 22:00 Heparin - SQ TID [facility] Famotidine/Sodium Chloride 20 mg in 50 mls @ 100 mls/hr 02/25/19 22:00 21:06 Pepcid 20 Mg Premixed Ivpb - IVPB 100 mls/hr BID [facility] Administration Sodium Chloride 1,000 mls @ 200 mls/hr 02/26/19 18:18 02/28/19 06:39 Normal Saline - IV 200 mls/hr ASDIR [facility] Administration Insulin Aspart 1 vial 02/26/19 14:01 02/28/19 07:10 Novolog Vial Sliding Scale - SQ Not Given Q4H [facility] Protocol Ondansetron HCl 4 mg 02/25/19 15:21 Zofran Injection IVPUSH Q4H PRN NAUSEA AND/OR VOMITING 53 year old gentleman with history of hypertension, DM not on insulin, hyperlipidemia, obesity who had elective gastric sleeve insertion and developed LUCAS. #LUCAS likely due to renal hypoprofuison in setting of post operative hypotension/ bleeding/ARB +/- ATN from NSAID use #Postoperative bleeding #Gastric Sleeve placement #History of hypertension #DM Plan LUCAS resolved, remains anemic- would monitor hgb, consider transfusion if ok with surgery and change his hudson to a [place] catheter. can also reduce fluids Dr Mariscal to follow tomorrow MV
[2019-02-28] MEDS: FAMOTIDINE 20 MG/50 ML IVPB 20 MG/50 ML MG IVPB SCH ×2 (09:14→21:53)
--- NOTE | 2019-02-28 10:11 | PN ---
Teaching Attending Note Name of Resident: Tiff Jolley ATTENDING PHYSICIAN STATEMENT I saw and evaluated the patient. I reviewed the resident's note and discussed the case with the resident. I agree with the resident's findings and plan as documented. SUBJECTIVE: Pt seen and examined in the ICU. Abdominal pain improving. H/H low this AM, receiving 1 unit PRBC. Urine output improving. OBJECTIVE: Vital Signs Period Temp Pulse Resp BP Sys/Cai Pulse Ox Last 24 Hr 98.1 F-98.6 F 74-88 15-21 124-142/52-83 94-95 Intake & Output 02/25/19 02/26/19 02/27/19 02/28/19 23:59 23:59 23:59 23:59 Intake Total 1150 6450 5120 1640 Output Total 300 1350 2450 4000 Balance 850 5100 2670 -2360 Weight 154.221 kg 151.5 kg 154.221 kg 154.221 kg Gen: NAD at rest Heart: RRR Lung: decreased breath sounds at the bases Abd: soft, appropriately tender, dressings intact Ext: no edema CBC, BMP 02/28/19 05:40 02/28/19 05:40 Active Medications Heparin Sodium (Porcine) (Heparin -) 1,000 unit SQ TID [facility] Famotidine/Sodium Chloride (Pepcid 20 Mg Premixed Ivpb -) 20 mg in 50 mls @ 100 mls/hr IVPB BID [facility] Last Admin: 02/28/19 09:14 Dose: 100 mls/hr Sodium Chloride (Normal Saline -) 1,000 mls @ 200 mls/hr IV ASDIR [facility] Last Admin: 02/28/19 06:39 Dose: 200 mls/hr Insulin Aspart (Novolog Vial Sliding Scale -) 1 vial SQ Q4H [facility]; Protocol Last Admin: 02/28/19 07:10 Dose: Not Given Ondansetron HCl (Zofran Injection) 4 mg IVPUSH Q4H PRN PRN Reason: NAUSEA AND/OR VOMITING Last Admin: 02/28/19 10:09 Dose: 4 mg ASSESSMENT AND PLAN: Morbid Obesity s/p Laparoscopic Gastric Sleeve Post op Bleeding Acute Blood Loss Anemia s/p Hematoma Evacuation Acute Kidney Injury DM Hyperlipidemia Obstructive Sleep Apnea - monitor H/H - transfuse as needed - pain control - incentive spirometry - IVF - monitor urine output, creatinine - PO as tolerated - CPAP at night - DVT prophylaxis - disposition per surgery
--- NOTE | 2019-02-28 10:47 | PN ---
Physical Exam: SUBJECTIVE: Patient evaluated @ bedside. Denies abdominal pain, shortness of breath, chest pain. C/o limited bladder control which is chronic. OBJECTIVE: Vital Signs Period Temp Pulse Resp BP Sys/Cai Pulse Ox Last 24 Hr 98.1 F-98.6 F 72-88 15-21 110-142/52-85 94-95 General: awake, alert, NAD CV: S1, S2, RRR Respiratory: CLTA B/L Abdomen: multiple surgical scar sites C/D/I, (+) bowel sounds, no TTP Extremity: 2+ DP pulses B/L, no edema Laboratory Results - last 24 hr 02/25/19 02/27/19 02/27/19 11:55 10:59 12:40 WBC Cancelled Corrected WBC (auto) Cancelled RBC Cancelled Hgb Cancelled Hct Cancelled MCV Cancelled MCH Cancelled MCHC Cancelled RDW Cancelled Plt Count Cancelled MPV Cancelled Manual Slide Review Cancelled Platelet Comment Cancelled Sodium Potassium Chloride Carbon Dioxide Anion Gap BUN Creatinine Est GFR (CKD-EPI)AfAm Est GFR (CKD-EPI)NonAf POC Glucometer 126 Random Glucose Calcium Creatine Kinase Blood Type O POSITIVE Antibody Screen Negative Crossmatch See Detail Crossmatch IS Only See Detail 02/27/19 02/27/19 02/27/19 14:06 15:02 18:26 WBC 16.6 H Corrected WBC (auto) RBC 3.62 L Hgb 8.8 L Hct 27.6 L MCV 76.2 L MCH 24.4 L MCHC 32.0 RDW 15.8 Plt Count 209 MPV 9.3 Manual Slide Review Platelet Comment Sodium Potassium Chloride Carbon Dioxide Anion Gap BUN Creatinine Est GFR (CKD-EPI)AfAm Est GFR (CKD-EPI)NonAf POC Glucometer 106 102 Random Glucose Calcium Creatine Kinase Blood Type Antibody Screen Crossmatch Crossmatch IS Only 02/27/19 02/28/19 02/28/19 20:59 05:40 05:40 WBC 12.9 H Corrected WBC (auto) RBC 3.10 L Hgb 7.7 L Hct 23.5 L MCV 75.8 L MCH 24.7 L MCHC 32.5 RDW 15.4 Plt Count 195 MPV 8.5 Manual Slide Review Platelet Comment Sodium 145 Potassium 3.8 Chloride 113 H Carbon Dioxide 29 Anion Gap 3 L BUN 16.9 Creatinine 1.1 Est GFR (CKD-EPI)AfAm 87.13 Est GFR (CKD-EPI)NonAf 75.17 POC Glucometer 109 Random Glucose 99 Calcium 7.6 L Creatine Kinase Blood Type Antibody Screen Crossmatch Crossmatch IS Only 02/28/19 02/28/19 02/28/19 05:40 05:59 08:15 WBC Corrected WBC (auto) RBC Hgb Hct MCV MCH MCHC RDW Plt Count MPV Manual Slide Review Platelet Comment Sodium Potassium Chloride Carbon Dioxide Anion Gap BUN Creatinine Est GFR (CKD-EPI)AfAm Est GFR (CKD-EPI)NonAf POC Glucometer 96 Random Glucose Calcium Creatine Kinase 140 Blood Type Antibody Screen Crossmatch See Detail Crossmatch IS Only Active Medications Generic Name Dose Route Start Last Admin Trade Name Freq PRN Reason Stop Dose Admin Heparin Sodium (Porcine) 1,000 unit 02/26/19 22:00 Heparin - SQ TID [facility] Famotidine/Sodium Chloride 20 mg in 50 mls @ 100 mls/hr 02/25/19 22:00 09:14 Pepcid 20 Mg Premixed Ivpb - IVPB 100 mls/hr BID [facility] Administration Sodium Chloride 1,000 mls @ 200 mls/hr 02/26/19 18:18 02/28/19 06:39 Normal Saline - IV 200 mls/hr ASDIR [facility] Administration Insulin Aspart 1 vial 02/26/19 14:01 02/28/19 07:10 Novolog Vial Sliding Scale - SQ Not Given Q4H [facility] Protocol Ondansetron HCl 4 mg 02/25/19 15:21 02/28/19 10:09 Zofran Injection IVPUSH 4 mg Q4H PRN Administration NAUSEA AND/OR VOMITING ASSESSMENT/PLAN: 53 y/o male with a PMHx of HTN, NIDDM who is POD ## s/p gastric sleeve surgery and POD #2 diagnostic laparoscopy Neurologic -no acute abnormalities Cardiac -history of Hypertension, currently normotensive -monitor BP for hypotension Pulmonary -hx of sleep apnea, continue CPAP in evenings. -duoneb treatment for mild wheezing this morning Gastrointestinal -POD #2 s/p sleeve gastrectomy. POD #1 s/p diagnostic laparoscopy, evacuation of blood clots, and control of intra-abdominal hemorrhage with oversewing of bleeding gastric staple line. - Hb 7.7 today (02/28) < 8.8 -General surgery recommendations (Dr. Wynn) appreciated. -advanced to clear liquid diet -passing gas -decreased pain Hematology - Hb drop to 7.7, will transfuse an additional 1 unit PRBC - Trend Hb - normal transfusion thresholds Nephrologic - LUCAS (Cr 2.0) resolved today, likely 2/2 hypovolemia and acute blood loss -trend creatinine FEN -continue to hydrate -replete lytes as necessary -clear liquid diet Prophylaxis -SCDs Disposition: -stable for transfer to Med Surg Visit type - Emergency Visit Emergency Visit: No - New Patient This patient is new to me today: Yes Date on this admission: 02/28/19 - Critical Care Critical Care patient: No ATTENDING PHYSICIAN STATEMENT I saw and evaluated the patient. I reviewed the resident's note and discussed the case with the resident. I agree with the resident's findings and plan as documented. SUBJECTIVE: OBJECTIVE: ASSESSMENT AND PLAN:
[2019-02-28] MEDS ORDERED: BENZOIN/ALOE VERA/STORAX/TOLU 58 ML BOTTLE ONE (15:37)
--- NOTE | 2019-02-28 15:48 | PN ---
Progress Note, Physician Chief Complaint: Laparoscopic Vertical Sleeve Gastrectomy. Intra-abdominal hemorrhage History of Present Illness: NAD in bed weak but feels a bit better POD 3 control of intra-abdominal bleed - Current Medication List Current Medications: Active Medications Heparin Sodium (Porcine) (Heparin -) 1,000 unit SQ TID [facility] Famotidine/Sodium Chloride (Pepcid 20 Mg Premixed Ivpb -) 20 mg in 50 mls @ 100 mls/hr IVPB BID [facility] Last Admin: 02/28/19 09:14 Dose: 100 mls/hr Sodium Chloride (Normal Saline -) 1,000 mls @ 100 mls/hr IV ASDIR [facility] Last Admin: 02/28/19 14:20 Dose: Not Given Insulin Aspart (Novolog Vial Sliding Scale -) 1 vial SQ ACHS [facility]; Protocol Ondansetron HCl (Zofran Injection) 4 mg IVPUSH Q4H PRN PRN Reason: NAUSEA AND/OR VOMITING Last Admin: 02/28/19 10:09 Dose: 4 mg - Objective Vital Signs: Vital Signs Temperature 98.1 F 02/28/19 14:40 Pulse Rate 80 02/28/19 14:40 Respiratory Rate 14 02/28/19 13:07 Blood Pressure 151/80 02/28/19 15:00 O2 Sat by Pulse Oximetry (%) 94 L 02/28/19 10:18 Constitutional: Yes: Well Nourished, No Distress, Calm Cardiovascular: Yes: Regular Rate and Rhythm Respiratory: Yes: Regular Gastrointestinal: Yes: Abdomen, Obese, Hypoactive Bowel Sounds, Tenderness ( incisional) Genitourinary: Yes: Flores Present Musculoskeletal: Yes: Muscle Weakness Edema: No Peripheral Pulses WNL: Yes Wound/Incision: Yes: Dressing Dry and Intact Neurological: Yes: Alert, Oriented Psychiatric: Yes: Alert, Oriented Labs: CBC, BMP 02/28/19 05:40 02/28/19 05:40 INR, PTT INR 1.25 (0.82-1.09) H 02/26/19 12:41 Problem List - Problems (1) LUCAS (acute kidney injury) Assessment/Plan: -nephrology consult appreciated -Cr improved -Continue IVF -Monitor trend Code(s): N17.9 - ACUTE KIDNEY FAILURE, UNSPECIFIED (2) Anemia Assessment/Plan: -2/2 to blood loss -POD 3 evacuation of blood from intra-abd bleed -Receiving another 2 units of PRBC -monitor trend -IVF Code(s): D64.9 - ANEMIA, UNSPECIFIED (3) Diabetes mellitus Assessment/Plan: -a1c at 7.7 -BGM AC HS -ISS -advance diet as per surgery Code(s): E11.9 - TYPE 2 DIABETES MELLITUS WITHOUT COMPLICATIONS Qualifiers: Diabetes mellitus type: due to underlying condition Diabetes mellitus complication status: with diabetic arthropathy (4) Intra abdominal hemorrhage Assessment/Plan: -Seen by surgery -Bleeding controlled in OR -ICU monitoring Code(s): R58 - HEMORRHAGE, NOT ELSEWHERE CLASSIFIED (5) HTN (hypertension) Assessment/Plan: -All BP meds on hold for hypotension upon admission 2/2 to blood loss -monitor trend and resume meds as indicated -cardiology consult Code(s): I10 - ESSENTIAL (PRIMARY) HYPERTENSION (6) Morbid obesity with BMI of 45.0-49.9, adult Code(s): E66.01 - MORBID (SEVERE) OBESITY DUE TO EXCESS CALORIES; Z68.42 - BODY MASS INDEX (BMI) 45.0-49.9, ADULT Assessment/Plan see problem list
[2019-02-28] MEDS ORDERED: INSULIN SLIDING SCALE (NOVOLOG) 1 VIAL SQ SCH ×2 (16:30→22:00)
--- NOTE | 2019-02-28 19:32 | PN ---
Progress Note (short form) - Note Progress Note: POD#2,3 Renal, ICU notes appreciated Afebrile; P-72-84 BP-134/81 Pt doing well Tolerating PO clear liquids H/H-7.7/23.5 (decreased, receiving 2 units PRBC) WBC-12.9 (decreased) U.O-100 cc/hr BUN/CR-16.9/1.1 Abd- decreased distention Ext- no swelling noted P- Transfuse PRBC Cont PO clear liquids- 3 oz PO 4-5 times per day Check labs in AM OOB and ambulate in AM if H/H stable Continue DVT prophylaxis
[2019-02-28] MEDS ORDERED: ONDANSETRON 4 MG/2 ML VIAL IVPUSH PRN ×2 (19:34→20:27)
--- NOTE | 2019-02-28 20:41 | PN ---
Progress Note, Physician Chief Complaint: comfortable no complaint,blood sugars improved - Current Medication List Current Medications: Active Medications Famotidine/Sodium Chloride (Pepcid 20 Mg Premixed Ivpb -) 20 mg in 50 mls @ 100 mls/hr IVPB BID [facility] Sodium Chloride (Normal Saline -) 1,000 mls @ 100 mls/hr IV ASDIR [facility] Insulin Aspart (Novolog Vial Sliding Scale -) 1 vial SQ ACHS [facility]; Protocol Ondansetron HCl (Zofran Injection) 4 mg IVPUSH Q4H PRN PRN Reason: NAUSEA AND/OR VOMITING - Objective Vital Signs: Vital Signs Temperature 98.2 F 02/28/19 19:33 Pulse Rate 84 02/28/19 17:00 Respiratory Rate 16 02/28/19 17:00 Blood Pressure 134/81 02/28/19 17:00 O2 Sat by Pulse Oximetry (%) 94 L 02/28/19 10:18 Constitutional: Yes: Calm Eyes: Yes: EOM Intact HENT: Yes: Normocephalic Neck: Yes: Trachea Midline Cardiovascular: Yes: Regular Rate and Rhythm Respiratory: Yes: CTA Bilaterally Gastrointestinal: Yes: Abdomen, Obese, Hypoactive Bowel Sounds ...Rectal Exam: Yes: Deferred Genitourinary: Yes: WNL Musculoskeletal: Yes: Muscle Weakness Extremities: Yes: WNL Edema: No Neurological: Yes: Alert, Oriented Labs: CBC, BMP 02/28/19 05:40 02/28/19 05:40 INR, PTT INR 1.25 (0.82-1.09) H 02/26/19 12:41 Problem List - Problems (1) Diabetes mellitus Code(s): E11.9 - TYPE 2 DIABETES MELLITUS WITHOUT COMPLICATIONS Qualifiers: Diabetes mellitus type: due to underlying condition Diabetes mellitus complication status: with diabetic arthropathy (2) LUCAS (acute kidney injury) Code(s): N17.9 - ACUTE KIDNEY FAILURE, UNSPECIFIED (3) HTN (hypertension) Code(s): I10 - ESSENTIAL (PRIMARY) HYPERTENSION (4) Morbid obesity with BMI of 45.0-49.9, adult Code(s): E66.01 - MORBID (SEVERE) OBESITY DUE TO EXCESS CALORIES; Z68.42 - BODY MASS INDEX (BMI) 45.0-49.9, ADULT (5) Muscle strain Code(s): T14.8 - OTHER INJURY OF UNSPECIFIED BODY REGION * DO NOT USE * (6) Sleep apnea Code(s): G47.30 - SLEEP APNEA, UNSPECIFIED (7) Strain of knee Code(s): S86.919A - STRAIN OF UNSP MUSC/TEND AT LOWER LEG LEVEL, UNSP LEG, INIT Qualifiers: Encounter type: initial encounter Laterality: right Qualified Code(s): S86.911A - Strain of unspecified muscle(s) and tendon(s) at lower leg level, right leg, initial encounter Assessment/Plan Current Active Problems LUCAS (acute kidney injury) (Acute) Diabetes mellitus (Acute) morbid obesity sp bariatric sleeve gi bleed Abnormal Lab Results 02/25/19 02/28/19 02/28/19 11:55 05:40 05:40 WBC 12.9 H RBC 3.10 L Hgb 7.7 L Hct 23.5 L MCV 75.8 L MCH 24.7 L Chloride 113 H Anion Gap 3 L Calcium 7.6 L Crossmatch See Detail Crossmatch IS Only See Detail 02/28/19 08:15 WBC RBC Hgb Hct MCV MCH Chloride Anion Gap Calcium Crossmatch See Detail Crossmatch IS Only Laboratory Tests 02/28/19 02/28/19 02/28/19 05:40 05:59 11:21 Potassium 3.8 Chloride 113 H Carbon Dioxide 29 BUN 16.9 Creatinine 1.1 POC Glucometer 96 103 02/28/19 15:55 Potassium Chloride Carbon Dioxide BUN Creatinine POC Glucometer 94 plan: bgm tid ac given improve glycemia
[2019-02-28] MEDS ORDERED: FAMOTIDINE 20 MG/50 ML IVPB 20 MG/50 ML MG IVPB SCH (22:00)
[2019-03-01] MEDS: ACETAMINOPHEN 1000 MG/100 ML VIAL (NON FORMULARY) IVPB PRN ×3 (01:43→22:54)
[2019-03-01] MEDS: INSULIN SLIDING SCALE (NOVOLOG) 1 VIAL SQ SCH ×3 (08:30→16:53)
[2019-03-01 08:35] LABS: INR 1.2 (0.83-1.09); PROTHROMBIN TIME (PATIENT) 14.2 SEC (9.7-13.0)
[2019-03-01 08:37] LABS: ACTIVATED PTT 34.2 SECONDS (25.2-36.5)
[2019-03-01 08:45] LABS: ALBUMIN 2.7 g/dl (3.4-5.0); BASO % 0.1 % (0-2.0); BLOOD UREA NITROGEN 13.5 mg/dL (7-18); CALCIUM 8.2 mg/dL (8.5-10.1); EOS % 1.3 % (0-4.5); HEMATOCRIT 25.4 % (35.4-49); HEMOGLOBIN 8.5 GM/dL (11.7-16.9); LYMPH % 20.6 % (8-40); MCH 25.6 pg (25.7-33.7); MCHC 33.4 g/dl (32.0-35.9); MEAN CELL VOLUME 76.7 fl (80-96); MEAN PLT VOLUME 8.5 fl (7.5-11.1); MONO % 9.6 % (3.8-10.2); NEUT % 68.4 % (42.8-82.8); PLATELET COUNT 232 K/MM3 (134-434); POTASSIUM 3.7 mmol/L (3.5-5.1); RBC 3.31 M/mm3 (4.00-5.60); TOT PROT 6.2 g/dl (6.4-8.2); WHITE BLOOD COUNT 10.5 K/mm3 (4.0-10.0)
[2019-03-01] MEDS ORDERED: FERRIC CARBOXYMALTOSE 750 MG in SODIUM CHLORIDE 250 ML IVPB ONE (09:03)
--- NOTE | 2019-03-01 09:06 | PN ---
Progress Note, Physician Chief Complaint: AWAKE ALERT FEELING WEAK DENIES CHEST PAIN OR SOB +BM/FLATULENCE - Current Medication List Current Medications: Active Medications Acetaminophen (Ofirmev Injection -) 1,000 mg IVPB Q6H PRN PRN Reason: PAIN OR FEVER Last Admin: 03/01/19 01:43 Dose: 1,000 mg Famotidine/Sodium Chloride (Pepcid 20 Mg Premixed Ivpb -) 20 mg in 50 mls @ 100 mls/hr IVPB BID [facility] Last Admin: 02/28/19 21:53 Dose: 100 mls/hr Sodium Chloride (Normal Saline -) 1,000 mls @ 100 mls/hr IV ASDIR [facility] Last Admin: 02/28/19 21:53 Dose: 100 mls/hr Ferric Carboxymaltose 750 mg/ (Sodium Chloride) 265 mls @ 530 mls/hr IVPB ONCE ONE Stop: 03/01/19 09:32 Insulin Aspart (Novolog Vial Sliding Scale -) 1 vial SQ TIDAC [facility]; Protocol Last Admin: 03/01/19 08:30 Dose: Not Given Ondansetron HCl (Zofran Injection) 4 mg IVPUSH Q4H PRN PRN Reason: NAUSEA AND/OR VOMITING - Objective Vital Signs: Vital Signs Temperature 98.7 F 03/01/19 06:00 Pulse Rate 73 03/01/19 06:00 Respiratory Rate 18 03/01/19 06:00 Blood Pressure 150/88 03/01/19 06:00 O2 Sat by Pulse Oximetry (%) 95 02/28/19 21:00 Constitutional: Yes: Mild Distress Cardiovascular: Yes: Regular Rate and Rhythm Respiratory: Yes: WNL Gastrointestinal: Yes: Normal Bowel Sounds, Soft Genitourinary: Yes: WNL Musculoskeletal: Yes: Muscle Weakness Edema: Yes Edema: LLE: Trace, RLE: Trace Integumentary: Yes: Other Wound/Incision: Yes: Well Approximated, Open to air Neurological: Yes: WNL ...Motor Strength: WNL Psychiatric: Yes: WNL Labs: CBC, BMP 03/01/19 07:56 03/01/19 07:56 INR, PTT INR 1.20 (0.83-1.09) H 03/01/19 07:56 Problem List - Problems (1) Anemia Code(s): D64.9 - ANEMIA, UNSPECIFIED (2) Diabetes mellitus Code(s): E11.9 - TYPE 2 DIABETES MELLITUS WITHOUT COMPLICATIONS Qualifiers: Diabetes mellitus type: due to underlying condition Diabetes mellitus complication status: with diabetic arthropathy (3) Intra abdominal hemorrhage Code(s): R58 - HEMORRHAGE, NOT ELSEWHERE CLASSIFIED (4) HTN (hypertension) Code(s): I10 - ESSENTIAL (PRIMARY) HYPERTENSION (5) Morbid obesity with BMI of 45.0-49.9, adult Code(s): E66.01 - MORBID (SEVERE) OBESITY DUE TO EXCESS CALORIES; Z68.42 - BODY MASS INDEX (BMI) 45.0-49.9, ADULT (6) Sleep apnea Code(s): G47.30 - SLEEP APNEA, UNSPECIFIED Assessment/Plan VENOFER IV 750MG FOR IRON DEF H/H IMPROVED, MONITOR DAILY OOB TO CHAIR WITH PT ADVANCE DIET DVT PROPHYLAXIS BARIATRIC SX F/U
[2019-03-01] MEDS: FAMOTIDINE 20 MG/50 ML IVPB 20 MG/50 ML MG IVPB SCH ×2 (10:44→21:51)
--- NOTE | 2019-03-01 13:58 | CON.CARD ---
Consult Consult Specialty:: cardiology Referred by:: Kingsley Reason for Consultation:: Postop care - History of Present Illness Chief Complaint: Incisional discomfort History of Present Illness: The patient is a 53-year-old morbidly obese man, with a history of diabetes, hypertension, hyperlipidemia, obstructive sleep apnea/CPAP, currently status post bariatric surgery, in no apparent distress. The patient denies chest pains and shortness of breath. No palpitations. No specific complaints. - History Source History Provided By: Patient, Medical Record Limitations to Obtaining History: No Limitations - Past Medical History Cardio/Vascular: Yes: HTN, Hyperlipdemia Pulmonary: Yes: COPD, Sleep Apnea Endocrine: Yes: Other (OBESITY) - Alcohol/Substance Use Hx Alcohol Use: No - Smoking History Smoking history: Former smoker Have you smoked in the past 12 months: Yes Home Medications - Allergies Allergies/Adverse Reactions: Allergies Allergy/AdvReac Type Severity Reaction Status Date / Time No Known Allergies Allergy Verified 02/22/19 11:07 - Home Medications Home Medications: Ambulatory Orders Atorvastatin Ca [Lipitor] 40 mg PO HS 12/07/17 Losartan/Hydrochlorothiazide [Losartan-Hctz 50-12.5 mg Tab] 1 each PO DAILY Sitagliptin Phosphate [Januvia] 100 mg PO DAILY 01/15/19 Amlodipine Besylate 10 mg PO DAILY 02/01/19 Furosemide [Lasix] 40 mg PO DAILY 02/01/19 Omeprazole 20 mg PO DAILY 02/01/19 Potassium Chloride [K-Dur -] 20 meq PO DAILY 02/01/19 Review of Systems - Review of Systems Constitutional: reports: No Symptoms Eyes: reports: No Symptoms HENT: reports: No Symptoms Neck: reports: No Symptoms Cardiovascular: reports: No Symptoms Respiratory: reports: No Symptoms Genitourinary: reports: No Symptoms Breasts: reports: No Symptoms Reported Musculoskeletal: reports: No Symptoms Integumentary: reports: No Symptoms Neurological: reports: No Symptoms Endocrine: reports: No Symptoms Hematology/Lymphatic: reports: No Symptoms Psychiatric: reports: No Symptoms Vital Signs: Vital Signs Temperature 98.7 F 03/01/19 06:00 Pulse Rate 73 03/01/19 06:00 Respiratory Rate 18 03/01/19 06:00 Blood Pressure 150/88 03/01/19 06:00 O2 Sat by Pulse Oximetry (%) 95 02/28/19 21:00 Constitutional: Yes: No Distress, Calm, Obese Eyes: Yes: WNL, Conjunctiva Clear, EOM Intact HENT: Yes: WNL, Atraumatic, Normocephalic Neck: Yes: WNL, Supple, Trachea Midline Respiratory: Yes: WNL, Regular, CTA Bilaterally Gastrointestinal: Yes: WNL, Normal Bowel Sounds, Soft Renal/: Yes: WNL Cardiovascular: Yes: WNL, Regular Rate and Rhythm JVD: No Carotid Bruit: No PMI: Non-Displaced Heart Sounds: Yes: S1, S2 Musculoskeletal: Yes: WNL Extremities: Yes: WNL Edema: No Peripheral Pulses WNL: Yes Peripheral Pulses: 2+ Left Carotid, 2+ Right Carotid, 2+ Left Femoral, 2+ Right Femoral, 2+ Left Popliteal, 2+ Right Popliteal, 2+ Left Doralis Pedis, 2+ Right Dorsalis Pedis Integumentary: Yes: WNL Neurological: Yes: WNL, Alert, Oriented ...Motor Strength: WNL Psychiatric: Yes: WNL - Other Data Labs, Other Data: CBC, BMP 03/01/19 07:56 03/01/19 07:56 INR, PTT INR 1.20 (0.83-1.09) H 03/01/19 07:56 Assessment/Plan The patient is a 53-year-old morbidly obese man, with a history of diabetes, hypertension, hyperlipidemia, obstructive sleep apnea/CPAP, currently status post bariatric surgery, in no apparent distress. The patient denies chest pains and shortness of breath. No palpitations. No specific complaints. The patient has been quite stable from the cardiac standpoint. No evidence of ischemia nor acute coronary syndrome. No CHF. Please continue current regimen. Make sure that the patient is uses the CPAP machine while asleep. Continue current medications. No need for further cardiac workup at this point. Please do not hesitate to call us PRN.
--- NOTE | 2019-03-01 17:13 | PN ---
Progress Note (short form) - Note Progress Note: POD#3,4 Afebrile; P-77; BP-155/87 Pt doing well Tolerating PO clear liquids- 3 oz PO 4-5 ties per day P/E-Abd- less distended; LUQ with hematoma laterally WBC-10.5 (decreased) H/H-8.5/25.4 BUN/CR-13.5/1.0 Pt voiding well Ambulated to nurses station- was slightly dizzy initially, but then improved P- PT to ambulate pt Continue clear liquids with sips of water Check labs, H/H daily Continue DVT prophylaxis
[2019-03-01] MEDS: SODIUM CHLORIDE 1,000 ML IV SCH (21:53)
[2019-03-02] MEDS: SODIUM CHLORIDE 1,000 ML IV SCH (04:47)
[2019-03-02] MEDS: INSULIN SLIDING SCALE (NOVOLOG) 1 VIAL SQ SCH ×2 (06:06→11:09)
[2019-03-02] MEDS: ACETAMINOPHEN 1000 MG/100 ML VIAL (NON FORMULARY) IVPB PRN (06:44)
[2019-03-02 07:50] LABS: HEMATOCRIT 26.8 % (35.4-49); HEMOGLOBIN 8.9 GM/dL (11.7-16.9); MCH 25.2 pg (25.7-33.7); MEAN CELL VOLUME 76.3 fl (80-96); MEAN PLT VOLUME 8.5 fl (7.5-11.1); PLATELET COUNT 266 K/MM3 (134-434); RBC 3.51 M/mm3 (4.00-5.60); RDW 15.8 % (11.9-15.9); WHITE BLOOD COUNT 11.5 K/mm3 (4.0-10.0)
--- NOTE | 2019-03-02 08:46 | DS ---
Physical Examination Vital Signs: Vital Signs Temperature 98.6 F 03/02/19 06:00 Pulse Rate 75 03/02/19 06:00 Respiratory Rate 18 03/02/19 06:00 Blood Pressure 154/91 03/02/19 06:00 O2 Sat by Pulse Oximetry (%) 96 03/01/19 21:00 Findings/Remarks: AWAKE ALERT FEELING BETTER Constitutional: Yes: No Distress Eyes: Yes: WNL HENT: Yes: WNL Neck: Yes: WNL Cardiovascular: Yes: Regular Rate and Rhythm Respiratory: Yes: On BiPap Gastrointestinal: Yes: Abdomen, Obese Renal/: Yes: WNL Musculoskeletal: Yes: Muscle Weakness Edema: Yes Peripheral Pulses WNL: Yes Integumentary: Yes: WNL Wound/Incision: Yes: Clean/Dry Neurological: Yes: WNL ...Motor Strength: WNL Psychiatric: Yes: WNL Labs: CBC, BMP 03/02/19 07:00 03/01/19 07:56 Discharge Summary Reason For Visit: LAPAROSCOPIC GASTRIC SLEEVE Current Active Problems LUCAS (acute kidney injury) (Acute) Anemia (Acute) Diabetes mellitus (Acute) Intra abdominal hemorrhage (Acute) Procedures: Principal: SLEEVE GASTRECTOMY Other Procedures: LABS Hospital Course: ADMITTED SLEEVE GASTRECTOMY, POSTOP BLEED MONITORED AND CAN BE FOLLOWED OUTPATIENT Condition: Improved - Instructions Diet, Activity, Other Instructions: SEE YOUR DOCTOR IN 2 DAYS FOR LABS HEMOGLOBIN CHECK SEE DR ANTOINE IN 1 WEEK Disposition: HOME - Home Medications Comprehensive Discharge Medication List: Ambulatory Orders Atorvastatin Ca [Lipitor] 40 mg PO HS 12/07/17 Losartan/Hydrochlorothiazide [Losartan-Hctz 50-12.5 mg Tab] 1 each PO DAILY Sitagliptin Phosphate [Januvia] 100 mg PO DAILY 01/15/19 Amlodipine Besylate 10 mg PO DAILY 02/01/19 Furosemide [Lasix] 40 mg PO DAILY 02/01/19 Omeprazole 20 mg PO DAILY 02/01/19 Potassium Chloride [K-Dur -] 20 meq PO DAILY 02/01/19
[2019-03-02] MEDS: FAMOTIDINE 20 MG/50 ML IVPB 20 MG/50 ML MG IVPB SCH (09:54)
[2019-03-02] MEDS ORDERED: amLODIPine BESYLATE 5 MG TABLET (FP) PO SCH ×3 (10:00→13:30)
[2019-03-02] MEDS ORDERED: LOSARTAN 50MG/HCTZ 12.5MG 1 TAB (FP) PO SCH ×3 (10:00→13:30)
--- NOTE | 2019-03-02 13:13 | PATH ---
Surgical Pathology Report Patient Name: CHANELL GAYTAN [facility]. Rec. #: [id number] /Age/Gender: 1965 (Age: 53) / M Account: [id number] Location: [address] [place] [address] Taken: 02/25/2019 Received: 02/25/2019 Reported: 03/02/2019 Physicians: Bakari Wynn M.D. Specimen(s) Received A: GREATER CURVATURE STOMACH B: LIVER BIOPSY Clinical History Morbid obesity Final Diagnosis A. GREATER CURVATURE OF STOMACH, LAPAROSCOPIC VERTICAL SLEEVE GASTRECTOMY: PORTION OF STOMACH SHOWING MILD CHRONIC GASTRITIS. IMMUNOSTAIN FOR H. PYLORI IS NEGATIVE. NEGATIVE FOR INTESTINAL METAPLASIA. B. LIVER, WEDGE BIOPSY: LIVER TISSUE WITH MILD STEATOSIS (5%), FOCAL. NO HISTOLOGIC EVIDENCE OF STEATOHEPATITIS. FOCAL NONCASEATING GRANULOMATOUS INFLAMMATION. SEE COMMENT. NO INCREASE IN FIBROSIS (TRICHROME STAIN) OR IRON (IRON STAIN) DEPOSITION. RETICULIN STAIN SHOWS AN INTACT SINUSOIDAL ARCHITECTURE. PAS WITH DIASTASE STAIN IS NEGATIVE FOR [id number] GLOBULES. NEGATIVE FOR MALIGNANCY. 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 AFB stain and PAS stain are negative for organisms. No polarizable foreign material is identified. The differential diagnoses include idiopathic hepatic granuloma, Infectious etiology, drug and chemical reaction, foreign body reaction, and sarcoidosis. Suggest clinical correlation. Electronically Signed Richard Pena M.D. Gross Description A. Received in formalin, labeled "greater curvature of stomach," is a 141 gram, 24.0 x 3.5 x 2.8 cm. portion of stomach with a stapled margin of resection. The serosa is guerrero-goins with minimal attached fat. The mucosa is guerrero-pink with normal folds. No mucosal masses are identified. Exhibit Designer sections are submitted in one cassette. B. Received in formalin labeled "liver biopsy," is a 2.7 x 1.2 x 0.5 cm guerrero portion of soft tissue, consistent with a portion of liver. The specimen is bisected and entirely submitted in one cassette. 02/26/201902/26/2019
--- NOTE | 2019-03-02 15:36 | PN ---
Progress Note (short form) - Note Progress Note: Renal follow up for LUCAS Pt seen and examined at the bedside no acute complaints for discharge home today no sob, cp, abd pain making urine Vital Signs Temperature 98.3 F 03/02/19 13:14 Pulse Rate 74 03/02/19 13:14 Respiratory Rate 20 03/02/19 13:14 Blood Pressure 162/76 03/02/19 13:14 O2 Sat by Pulse Oximetry (%) 94 L 03/02/19 09:00 Intake & Output 02/27/19 02/28/19 03/01/19 03/02/19 23:59 23:59 23:59 23:59 Intake Total 5120 2740 2550 1350 Output Total 2450 6000 1000 400 Balance 2670 -3260 1550 950 Weight 154.221 kg 154.221 kg 153.428 kg 152.549 kg NAD RRR CTA + abd distension no LE edema CBC, BMP 03/02/19 07:00 03/01/19 07:56 Current Medications Amlodipine Besylate (Norvasc -) 5 mg PO DAILY [facility] Last Admin: 03/02/19 13:23 Dose: 5 mg HCTZ/Losartan Potassium (Hyzaar -) 1 tab PO DAILY [facility] Last Admin: 03/02/19 13:23 Dose: 1 tab Famotidine/Sodium Chloride (Pepcid 20 Mg Premixed Ivpb -) 20 mg in 50 mls @ 100 mls/hr IVPB BID [facility] Last Admin: 03/02/19 09:54 Dose: 100 mls/hr Sodium Chloride (Normal Saline -) 1,000 mls @ 100 mls/hr IV ASDIR [facility] Last Admin: 03/02/19 04:47 Dose: 100 mls/hr Insulin Aspart (Novolog Vial Sliding Scale -) 1 vial SQ TIDAC [facility]; Protocol Last Admin: 03/02/19 11:09 Dose: Not Given Ondansetron HCl (Zofran Injection) 4 mg IVPUSH Q4H PRN PRN Reason: NAUSEA AND/OR VOMITING Last Admin: 03/02/19 14:37 Dose: 4 mg 53 year old gentleman with history of hypertension, DM not on insulin, hyperlipidemia, obesity who had elective gastric sleeve insertion and developed LUCAS. #LUCAS likely due to renal hypoprofuison in setting of post operative hypotension/ bleeding/ARB +/- ATN from NSAID use #Postoperative bleeding #Gastric Sleeve placement #History of hypertension #DM Renal function now improved and stable can be off IVF discharge planning as per primary team to follow up with PMD and have repeat BMP done as outpatient would avoid NSAIDs for pain control for now Etienne Mariscal DO
--- NOTE | 2019-03-02 17:02 | PN ---
Progress Note (short form) - Note Progress Note: POD#4,5 Afebrile; VSS Pt doing well OOB to chair Tolerating PO clear liquids- 3 oz PO 4-5 times per day H/H-8.9/26.8 (increased) P/E- Abd- dried blood noted left lateral incision now re-inforced, no active bleeding Ext- no swelling or edema noted P- D/C home PO instructions given to pt and - 3 oz PO clear liquids 4-5 times per day + i cup of water/ice chips/ crystal light Q2H F/U in 9 days
[2019-03-02 20:32] VITALS: BP 131/98; PULSE 94; TEMP 98.7
== END 2019-03-02 22:11 | disposition home or self-care (01) | DRG 619 ==
LOC: FM/S 11:18 → JICU 02-26 16:25 → J6S 02-28 20:18
PROVIDERS: ADMIT Surgery; ATTEND Surgery
PROC: 0DJ08ZZ Inspection of Upper Intestinal Tract, Via Natural or Artificial Opening Endoscopic (ICD-10-PCS; 2019-02-25)
PROC: 0DB64Z3 Excision of Stomach, Percutaneous Endoscopic Approach, Vertical (ICD-10-PCS; principal; 2019-02-25 14:04)
PROC: 0D964ZZ Drainage of Stomach, Percutaneous Endoscopic Approach (ICD-10-PCS; 2019-02-26)
PROC: 0W3P4ZZ Control Bleeding in Gastrointestinal Tract, Percutaneous Endoscopic Approach (ICD-10-PCS; 2019-02-26)
PROC: 0DJ08ZZ Inspection of Upper Intestinal Tract, Via Natural or Artificial Opening Endoscopic (ICD-10-PCS; 2019-02-26)
PROC: 30233N1 Transfusion of Nonautologous Red Blood Cells into Peripheral Vein, Percutaneous Approach (ICD-10-PCS; 2019-02-26)
DX: E66.01 Morbid (severe) obesity due to excess calories (principal); T81.19XA Other postprocedural shock, initial encounter; K91.841 Postprocedural hemorrhage of a digestive system organ or structure following other procedure; N17.9 Acute kidney failure, unspecified; D62 Acute posthemorrhagic anemia; Z68.41 Body mass index [BMI] 40.0-44.9, adult; E11.65 Type 2 diabetes mellitus with hyperglycemia; Y83.8 Other surgical procedures as the cause of abnormal reaction of the patient, or of later complication, without mention of misadventure at the time of the procedure; I10 Essential (primary) hypertension; E78.5 Hyperlipidemia, unspecified; J44.9 Chronic obstructive pulmonary disease, unspecified; G47.30 Sleep apnea, unspecified; S86.911A Strain of unspecified muscle(s) and tendon(s) at lower leg level, right leg, initial encounter; R58 Hemorrhage, not elsewhere classified; E11.618 Type 2 diabetes mellitus with other diabetic arthropathy
CPT/HCPCS: 36415; 36430; 36511; 74241-TC-FY; 76775-TC; 76856-TC; 80048; 80053; 81003; 82436; 82550; 82570; 82962; 83036; 83540; 83550; 83735; 84100; 84133; 84156; 84300; 84540; 85025; 85027; 85610; 85730; 86850; 86900; 86901; 86922; 87205; 88305-TC; 88312-TC; 88313-TC; 94640; 94660; 94760; 97116-GP; 97161-GP; J0131; J1439; J7030; P9038; P9058

== ENCOUNTER 2020-06-12 12:14 | Emergency (ER) | payer OTHER ==
[2020-06-12 13:13] VITALS: BP 121/82; PULSE 81; TEMP 97.7; BMI 36.9
== END 2020-06-12 14:35 | disposition home or self-care (01) ==
LOC: JERFT 12:14
DX: M79.10 Myalgia, unspecified site (principal); Y04.0XXA Assault by unarmed brawl or fight, initial encounter
CPT/HCPCS: 99283-25

== ENCOUNTER 2020-08-04 05:36 | Day surgery (SDC) | payer OTHER ==
[2020-08-04 06:49] VITALS: BMI 38.5
[2020-08-04 07:08] LABS: BASO % 0.5 % (0-2.0); EOS % 3.3 % (0-4.5); HEMOGLOBIN 13.6 GM/dL (11.7-16.9); LYMPH % 38.1 % (8-40); MCH 26.1 pg (25.7-33.7); MCHC 33.1 g/dl (32.0-35.9); MEAN CELL VOLUME 78.9 fl (80-96); MEAN PLT VOLUME 9.1 fl (7.5-11.1); MONO % 8.6 % (3.8-10.2); NEUT % 49.5 % (42.8-82.8); PLATELET COUNT 234 K/MM3 (134-434); RBC 5.19 M/mm3 (4.00-5.60); RDW 14.8 % (11.9-15.9); WHITE BLOOD COUNT 7.7 K/mm3 (4.0-10.0)
[2020-08-04 07:24] LABS: INR 1.1 (0.83-1.09); PROTHROMBIN TIME (PATIENT) 13.3 SEC (9.7-13.0)
[2020-08-04 07:27] LABS: ACTIVATED PTT 36.8 SECONDS (25.2-36.5)
[2020-08-04 07:28] LABS: CALCIUM 8.9 mg/dL (8.5-10.1)
[2020-08-04 07:29] LABS: ALBUMIN 3.5 g/dl (3.4-5.0); BLOOD UREA NITROGEN 17.3 mg/dL (7-18)
[2020-08-04 07:32] LABS: CREATININE 1.2 mg/dL (0.55-1.3)
[2020-08-04 07:34] LABS: BILIRUBIN,TOTAL 0.4 mg/dL (0.2-1)
[2020-08-05 08:32] LABS: BASO % 0.4 % (0-2.0); EOS % 3.2 % (0-4.5); HEMATOCRIT 36.1 % (35.4-49); HEMOGLOBIN 11.7 GM/dL (11.7-16.9); LYMPH % 33.1 % (8-40); MCH 25.7 pg (25.7-33.7); MCHC 32.5 g/dl (32.0-35.9); MEAN CELL VOLUME 78.8 fl (80-96); MEAN PLT VOLUME 9.1 fl (7.5-11.1); MONO % 10.4 % (3.8-10.2); NEUT % 52.9 % (42.8-82.8); PLATELET COUNT 204 K/MM3 (134-434); RBC 4.57 M/mm3 (4.00-5.60); RDW 14.7 % (11.9-15.9); WHITE BLOOD COUNT 7.1 K/mm3 (4.0-10.0)
[2020-08-05 14:03] LABS: BASO % 1.2 % (0-2.0); EOS % 3.8 % (0-4.5); HEMATOCRIT 35.9 % (35.4-49); HEMOGLOBIN 11.7 GM/dL (11.7-16.9); MCH 25.8 pg (25.7-33.7); MCHC 32.6 g/dl (32.0-35.9); MEAN PLT VOLUME 8.6 fl (7.5-11.1); PLATELET COUNT 209 K/MM3 (134-434); RBC 4.55 M/mm3 (4.00-5.60); RDW 14.8 % (11.9-15.9); WHITE BLOOD COUNT 6.3 K/mm3 (4.0-10.0)
[2020-08-05 14:38] VITALS: BP 111/60; PULSE 71; TEMP 98.7
== END 2020-08-05 16:30 | disposition home or self-care (01) ==
LOC: JER 05:36 → JASUSAT 07:14 → J7W 12:44 → JASUSAT 08-05 16:30
PROVIDERS: ATTEND Internal Medicine Gastroenterology
PROC: 0W3P8ZZ Control Bleeding in Gastrointestinal Tract, Via Natural or Artificial Opening Endoscopic (ICD-10-PCS; principal; 2020-08-04)
DX: K92.2 Gastrointestinal hemorrhage, unspecified (principal); K91.840 Postprocedural hemorrhage of a digestive system organ or structure following a digestive system procedure; Z98.890 Other specified postprocedural states; Y84.8 Other medical procedures as the cause of abnormal reaction of the patient, or of later complication, without mention of misadventure at the time of the procedure; Y73.3 Surgical instruments, materials and gastroenterology and urology devices (including sutures) associated with adverse incidents; Y92.9 Unspecified place or not applicable
CPT/HCPCS: 36415; 71045-TC-FY; 80053; 82272; 83605; 85025; 85610; 85730; 86850; 86900; 86901; 86922; 93005; 93010; 99285-25

== ENCOUNTER 2020-12-25 17:55 | Emergency (ER) | payer OTHER ==
[2020-12-25 18:21] VITALS: BMI 37.8
[2020-12-25 19:58] LABS: BASO % 0.6 % (0-2.0); EOS % 0.7 % (0-4.5); HEMATOCRIT 43.5 % (35.4-49); HEMOGLOBIN 14.1 GM/dL (11.7-16.9); LYMPH % 14.6 % (8-40); MCH 24.3 pg (25.7-33.7); MCHC 32.5 g/dl (32.0-35.9); MEAN CELL VOLUME 74.6 fl (80-96); MEAN PLT VOLUME 9.5 fl (7.5-11.1); MONO % 12.7 % (3.8-10.2); NEUT % 71.4 % (42.8-82.8); PLATELET COUNT 228 K/MM3 (134-434); RBC 5.83 M/mm3 (4.00-5.60); RDW 16.1 % (11.9-15.9); WHITE BLOOD COUNT 11.6 K/mm3 (4.0-10.0)
[2020-12-25 20:15] LABS: CALCIUM 8.8 mg/dL (8.5-10.1)
[2020-12-25 20:16] LABS: ALBUMIN 3.4 g/dl (3.4-5.0); BLOOD UREA NITROGEN 17.3 mg/dL (7-18); MAGNESIUM 2.4 mg/dL (1.8-2.4)
[2020-12-25 20:21] LABS: BILIRUBIN,TOTAL 1.7 mg/dL (0.2-1); TOT PROT 8.2 g/dl (6.4-8.2)
[2020-12-25] MEDS ORDERED: SODIUM CHLORIDE 0.9% 500 ML INFUS.BAG IV ONE (20:25)
[2020-12-25 20:35] LABS: EPI CELLS 16 /uL (0-25.1); HYALINE CASTS 1 /uL (0-3.1); PH,URINE 6.5 (5.0-8.0); URINE APPEARANCE CLEAR; URINE BACTERIA 7 /uL (0-1359); URINE BILIRUBIN NEGATIVE (NEGATIVE); URINE COLOR YELLOW; URINE GLUCOSE (UA) NEGATIVE (NEGATIVE); URINE KETONE TRACE (NEGATIVE); URINE LEUK ESTERASE NEGATIVE (NEGATIVE); URINE NITRITE NEGATIVE (NEGATIVE); URINE PROTEIN 1+ (NEGATIVE); URINE RBC 34 /uL (0-23.9); URINE WBC 30 /uL (0-25.8)
[2020-12-25] MEDS ORDERED: CEPHALEXIN MONOHYDRATE 500 MG CAPSULE (UD) PO ONE (23:01)
[2020-12-25] MEDS ORDERED: CEPHALEXIN MONOHYDRATE 500 MG CAPSULE (UD) ONE (23:04)
[2020-12-25 23:12] VITALS: BP 126/89; PULSE 79; TEMP 99.2
== END 2020-12-25 23:41 | disposition home or self-care (01) ==
LOC: JER 17:55
DX: K62.89 Other specified diseases of anus and rectum (principal); N20.0 Calculus of kidney; N28.1 Cyst of kidney, acquired; E27.9 Disorder of adrenal gland, unspecified
CPT/HCPCS: 36415; 71046-TC-FY; 74177-TC; 80053; 81003; 82272; 83735; 85025; 87086; 99285-25; Q9967

== ENCOUNTER 2021-08-17 16:30 | Emergency (ER) | payer OTHER ==
[2021-08-17 17:00] VITALS: BP 114/69; PULSE 74; TEMP 98; BMI 39.3
== END 2021-08-17 19:19 | disposition home or self-care (01) ==
LOC: JERFT 16:30
DX: M54.50 Low back pain, unspecified (principal); S46.811A Strain of other muscles, fascia and tendons at shoulder and upper arm level, right arm, initial encounter; M25.561 Pain in right knee; V89.2XXA Person injured in unspecified motor-vehicle accident, traffic, initial encounter; Y92.9 Unspecified place or not applicable
CPT/HCPCS: 72100-TC-FY; 73562-TC-RT-FY; 99284-25

== ENCOUNTER 2025-01-15 13:29 | Observation (INO) | payer OTHER ==
[2025-01-15] MEDS ORDERED: HALOPERIDOL LACTATE 5 MG/ML ONE ×2 (13:52→14:51)
[2025-01-15] MEDS: HALOPERIDOL LACTATE 5 MG/ML IM ONE (14:13)
[2025-01-15 14:41] LABS: ABSOLUTE IMMATURE GRANULOCYTES 0.02 x10^3/uL (0.0-0.031); BASOPHILS # 0.01 x10^3/uL (0.01-0.08); EOSINOPHIL % 0.8 % (0.8-7.0); EOSINOPHILS # 0.05 x10^3/uL (0.04-0.54); HEMATOCRIT 46.6 % (40.1-51.0); HEMOGLOBIN 14.7 g/dL (13.7-17.5); MCHC 31.5 g/dl (32.3-36.5); MEAN CELL VOLUME 78.5 fl (79.0-92.2); MEAN PLT VOLUME 11.3 fl (9.4-12.4); MONOCYTE # 0.64 x10^3/uL (0.30-0.82); MONOCYTE % 9.9 % (5.3-12.2); PLATELET COUNT 264 x10^3/uL (163-337); RDW 14.1 % (12.2-16.4)
[2025-01-15] MEDS ORDERED: ONDANSETRON 4 MG/2 ML VIAL ONE (14:51)
[2025-01-15] MEDS ORDERED: FAMOTIDINE 10 MG/ML VIAL IVPB ONE (14:52)
[2025-01-15 14:54] LABS: POTASSIUM 4.4 mmol/L (3.5-5.1)
[2025-01-15 14:56] LABS: CALCIUM 9.5 mg/dL (8.5-10.1)
[2025-01-15 14:57] LABS: ALBUMIN 3.5 g/dl (3.4-5.0); BLOOD UREA NITROGEN 14.6 mg/dL (7-18); MAGNESIUM 1.9 mg/dL (1.8-2.4)
[2025-01-15 15:00] LABS: CREATININE 1.2 mg/dL (0.55-1.3)
[2025-01-15] MEDS: FAMOTIDINE 20 MG/50 ML IVPB 20 MG/50 ML MG IVPB ONE (15:00)
[2025-01-15] MEDS: ONDANSETRON 4 MG/2 ML VIAL IVPUSH ONE (15:00)
[2025-01-15 15:01] LABS: BILIRUBIN,TOTAL 1.3 mg/dL (0.2-1); TOT PROT 8.3 g/dl (6.4-8.2)
[2025-01-15] MEDS ORDERED: METOCLOPRAMIDE HCL INJECTION 10 MG/2 ML VIAL ONE (15:53)
[2025-01-15] MEDS: HALOPERIDOL LACTATE 5 MG/ML IVPUSH ONE (16:17)
[2025-01-15] MEDS: LACTATED RINGERS SOLUTION 1000 ML INFUS.BAG IV ONE (16:18)
[2025-01-15] MEDS: METOCLOPRAMIDE HCL INJECTION 10 MG/2 ML VIAL IVPB ONE (16:18)
[2025-01-15 17:55] LABS: HCV DIAGNOSTIC IN-HOUSE W/RFLX NON-REACTIVE (NONREACTIVE)
[2025-01-15 17:56] LABS: HIV INTERPRETATION NEGATIVE (NEGATIVE)
[2025-01-15] MEDS: FAMOTIDINE 20 MG/50 ML IVPB 20 MG/50 ML MG IVPB SCH (21:30)
[2025-01-15] MEDS: MELATONIN 1 MG TABLET PO PRN (22:59)
[2025-01-15 23:24] VITALS: BMI 34.9
[2025-01-16 07:18] LABS: ABSOLUTE IMMATURE GRANULOCYTES 0.01 x10^3/uL (0.0-0.031); BASOPHILS # 0.02 x10^3/uL (0.01-0.08); EOSINOPHIL % 2.5 % (0.8-7.0); EOSINOPHILS # 0.15 x10^3/uL (0.04-0.54); HEMOGLOBIN 14.2 g/dL (13.7-17.5); MCHC 31.6 g/dl (32.3-36.5); MEAN CELL VOLUME 78.5 fl (79.0-92.2); MEAN PLT VOLUME 10.7 fl (9.4-12.4); MONOCYTE # 0.71 x10^3/uL (0.30-0.82); PLATELET COUNT 234 x10^3/uL (163-337); RDW 14.1 % (12.2-16.4)
[2025-01-16 07:35] LABS: POTASSIUM 3.5 mmol/L (3.5-5.1)
[2025-01-16 07:37] LABS: ALBUMIN 3.3 g/dl (3.4-5.0); CALCIUM 9.5 mg/dL (8.5-10.1)
[2025-01-16 07:39] LABS: BLOOD UREA NITROGEN 12.1 mg/dL (7-18)
[2025-01-16 07:42] LABS: CREATININE 1.1 mg/dL (0.55-1.3); PHOSPHOROUS 2.6 mg/dL (2.5-4.9)
[2025-01-16 07:43] LABS: BILIRUBIN,TOTAL 1.4 mg/dL (0.2-1); TOT PROT 7.5 g/dl (6.4-8.2)
[2025-01-16] MEDS: METOCLOPRAMIDE HCL INJECTION 10 MG/2 ML VIAL IVPUSH PRN (08:50)
[2025-01-16] MEDS: ENOXAPARIN NA (PORCINE) 40 MG/0.4 ML DISP.SYRIN SQ SCH (10:52)
[2025-01-16 13:35] VITALS: PULSE 55; RESP 16
[2025-01-16 15:48] VITALS: BP 140/83; TEMP 98.4
== END 2025-01-16 16:09 | disposition left against medical advice (07) ==
LOC: JER 13:29 → JERBED 16:26 → J5S 20:54
PROVIDERS: ADMIT Student in an Organized Health Care Education/Training Program; ATTEND Student in an Organized Health Care Education/Training Program
PROC: 3E033GC Introduction of Other Therapeutic Substance into Peripheral Vein, Percutaneous Approach (ICD-10-PCS; principal; 2025-01-15)
PROC: 3E023GC Introduction of Other Therapeutic Substance into Muscle, Percutaneous Approach (ICD-10-PCS; 2025-01-15)
PROC: 3E0233Z Introduction of Anti-inflammatory into Muscle, Percutaneous Approach (ICD-10-PCS; 2025-01-15)
PROC: 3E0337Z Introduction of Electrolytic and Water Balance Substance into Peripheral Vein, Percutaneous Approach (ICD-10-PCS; 2025-01-15)
DX: R11.2 Nausea with vomiting, unspecified (principal); R10.9 Unspecified abdominal pain; F12.90 Cannabis use, unspecified, uncomplicated; E11.9 Type 2 diabetes mellitus without complications; I10 Essential (primary) hypertension; E78.5 Hyperlipidemia, unspecified; Z98.84 Bariatric surgery status; Z79.899 Other long term (current) drug therapy
CPT/HCPCS: 36415; 71045-TC-FY; 80053; 83690; 83735; 84100; 84443; 84484; 85025; 86803; 87389; 93005; 93010; 99285-25; G0378